=== PATIENT | male | born 1930 | race Caucasian/White ===

== ENCOUNTER → 2016-08-15 | Outpatient (CLI) | payer MEDICARE, BC ==
--- NOTE | 2016-08-15 13:51 | CT ---
EXAMINATION TYPE: CT chest wo con DATE OF EXAM: 08/15/2016 COMPARISON: Right-sided pulmonary nodules. HISTORY: Patient poor historian. Patient offers no chest complaints at time of study. Follow up adia dy to prior CT. CT DLP: 670 mGycm Automated exposure control for dose reduction was used. FINDINGS: There is a stable 7.1 mm noncalcified lymph node in the lateral basal segment of the right lower lobe, best seen on image 36. There is calcified granuloma in the posterior basal segment on mignon t same image. Lesion noted previously in the right lower lobe is less clearly demonstrated on this ex amination. No other definite pulmonary nodules are seen. There is some shotty mediastinal adenopathy. No pathologically enlarged lymph nodes are seen. There is no pleural or pericardial fluid. The heart is not enlarged. There is coronary artery calcifi cation as well as other vascular calcifications. The proximal arch is also aneurysmal measuring 3.3 c m. The proximal descending thoracic aorta remains aneurysmal measuring 3.1 cm. At the level of the ao rtic hiatus the aorta is normal in caliber. There is a 1.5 cm gallstone within the gallbladder. Visualized portions of the upper abdomen are othe rwise normal. There is hypertrophic spondylosis within the spine. IMPRESSION: 1. STABLE, 7.1 MM NODULE IN THE LATERAL BASAL SEGMENT OF THE RIGHT LOWER LOBE. 2. EVIDENCE OF GRANULOMATOUS DISEASE. 3. ASCENDING THORACIC AORTIC ANEURYSM. 4. CHOLELITHIASIS. 5. DEGENERATIVE CHANGES WITHIN THE SPINE.
== END | disposition home or self-care (01) ==
LOC: RADCTMAIN 13:18
PROVIDERS: ATTEND Internal Medicine Critical Care Medicine
DX: R91.1 Solitary pulmonary nodule (principal); I71.2 Thoracic aortic aneurysm, without rupture; D71 Functional disorders of polymorphonuclear neutrophils
CPT/HCPCS: 71250

== ENCOUNTER 2016-11-21 05:46 | Inpatient (IN) | payer MEDICARE, BC ==
--- NOTE | 2016-11-21 06:01 | ED ---
General Adult HPI - General Chief complaint: Shortness of Breath Stated complaint: HARLEY Time Seen by Provider: 11/21/16 05:53 Source: patient, family, RN notes reviewed Mode of arrival: ambulatory Limitations: no limitations - History of Present Illness Initial comments: Patient is a pleasant 86-year-old male presenting to the emergency department with difficulty in breathing. Patient has had some mild symptoms for a week however worse last night. Patient has occasional minimal cough. No chest pain. Patient does have mild leg swelling however this is somewhat chronic. No calf pain. No fever. Patient checked his oxygen at home and it was low. Patient denies any history of previous lung problems or COPD or CHF. - Related Data Home Medications Medication Instructions Recorded Confirmed Aspirin 325 mg PO DAILY 11/21/16 11/21/16 Atenolol [Tenormin] 12.5 mg PO DAILY 11/21/16 11/21/16 Furosemide [Lasix] 40 mg PO BID 11/21/16 11/21/16 Glimepiride [Amaryl] 2 mg PO AC-BRKFST 11/21/16 11/21/16 Isosorbide Mononitrate [Isosorbide 30 mg PO DAILY 11/21/16 11/21/16 Mononitrate ER] Nitroglycerin Sl Tabs [Nitrostat] 0.4 mg SUBLINGUAL Q5M PRN 11/21/16 11/21/16 Simvastatin [Zocor] 40 mg PO HS 11/21/16 11/21/16 amLODIPine [Norvasc] 10 mg PO DAILY 11/21/16 11/21/16 Allergies Allergy/AdvReac Type Severity Reaction Status Date / Time No Known Allergies Allergy Verified 11/21/16 05:59 Review of Systems ROS Statement: Those systems with pertinent positive or pertinent negative responses have been documented in the HPI. ROS Other: All systems not noted in ROS Statement are negative. Constitutional: Denies: fever, chills Eyes: Denies: eye pain ENT: Denies: ear pain Respiratory: Reports: cough, dyspnea Cardiovascular: Denies: chest pain Endocrine: Denies: fatigue Gastrointestinal: Denies: abdominal pain Genitourinary: Denies: dysuria Musculoskeletal: Denies: back pain Skin: Denies: rash Neurological: Denies: weakness Past Medical History Past Medical History: Diabetes Mellitus, Hyperlipidemia, Hypertension History of Any Multi-Drug Resistant Organisms: None Reported Past Surgical History: Coronary Bypass/CABG Past Psychological History: No Psychological Hx Reported Smoking Status: Never smoker Past Alcohol Use History: None Reported Past Drug Use History: None Reported General Exam Limitations: no limitations General appearance: alert, in no apparent distress Head exam: Present: atraumatic Eye exam: Present: normal appearance, PERRL ENT exam: Present: normal oropharynx Neck exam: Present: normal inspection Respiratory exam: Present: rales (Left base greater than right base) Cardiovascular Exam: Present: regular rate, normal rhythm GI/Abdominal exam: Present: soft. Absent: tenderness Extremities exam: Present: pedal edema (+1 bilateral). Absent: calf tenderness Back exam: Present: normal inspection Neurological exam: Present: alert Psychiatric exam: Present: normal affect, normal mood Skin exam: Present: normal color Course Vital Signs 11/21/16 11/21/16 05:51 06:29 Temperature 98.4 F Pulse Rate 59 L 59 L Respiratory 24 20 Rate Blood Pressure 182/76 169/74 O2 Sat by Pulse 79 L Oximetry EKG Findings - EKG Comments: EKG Findings:: Sinus bradycardia 59. First-degree AV block with TN of 3:30. QRS 102. QT 422. QTC 417. Normal axis. Q wave in lead III. No acute ST change. Medical Decision Making - Medical Decision Making Patient reevaluated and resting comfortably in bed. Patient and family were updated on results and plan. Case discussed with Dr. Shepherd, covering for Dr. Randolph who does recommend admission to Dr. sousa. Case was discussed with Dr. sousa, who will admit. Cardiology has been paged. - Lab Data Result diagrams: 11/21/16 05:57 11/21/16 05:57 Lab Results 11/21/16 11/21/16 11/21/16 Range/Units 05:57 05:57 05:57 WBC 10.7 H (3.8-10.6) k/uL RBC 4.86 (4.30-5.90) m/uL Hgb 14.5 (13.0-17.5) gm/dL Hct 43.1 (39.0-53.0) % MCV 88.6 (80.0-100.0) fL MCH 29.8 (25.0-35.0) pg MCHC 33.6 (31.0-37.0) g/dL RDW 14.1 (11.5-15.5) % Plt Count 201 (150-450) k/uL Neutrophils % 76 % Lymphocytes % 13 % Monocytes % 8 % Eosinophils % 2 % Basophils % 0 % Neutrophils # 8.1 H (1.3-7.7) k/uL Lymphocytes # 1.4 (1.0-4.8) k/uL Monocytes # 0.8 (0-1.0) k/uL Eosinophils # 0.2 (0-0.7) k/uL Basophils # 0.0 (0-0.2) k/uL PT (9.0-12.0) sec INR (<1.2) APTT (22.0-30.0) sec Sodium 141 (137-145) mmol/L Potassium 4.6 (3.5-5.1) mmol/L Chloride 102 (98-107) mmol/L Carbon Dioxide 28 (22-30) mmol/L Anion Gap 11 mmol/L BUN 40 H (9-20) mg/dL Creatinine 1.65 H (0.66-1.25) mg/dL Est GFR (MDRD) Af Amer 48 (>60 ml/min/1.73 sqM) Est GFR (MDRD) Non-Af 40 (>60 ml/min/1.73 sqM) Glucose 289 H (74-99) mg/dL Calcium 9.1 (8.4-10.2) mg/dL Total Bilirubin 1.0 (0.2-1.3) mg/dL AST 25 (17-59) U/L ALT 37 (21-72) U/L Alkaline Phosphatase 79 (38-126) U/L Total Creatine Kinase 49 L (55-170) U/L CK-MB (CK-2) 1.4 (0.0-2.4) ng/mL CK-MB (CK-2) Rel Index 2.9 Troponin I 0.178 H* (0.000-0.034) ng/mL NT-Pro-B Natriuret Pep pg/mL Total Protein 6.9 (6.3-8.2) g/dL Albumin 4.2 (3.5-5.0) g/dL 11/21/16 11/21/16 Range/Units 05:57 05:57 WBC (3.8-10.6) k/uL RBC (4.30-5.90) m/uL Hgb (13.0-17.5) gm/dL Hct (39.0-53.0) % MCV (80.0-100.0) fL MCH (25.0-35.0) pg MCHC (31.0-37.0) g/dL RDW (11.5-15.5) % Plt Count (150-450) k/uL Neutrophils % % Lymphocytes % % Monocytes % % Eosinophils % % Basophils % % Neutrophils # (1.3-7.7) k/uL Lymphocytes # (1.0-4.8) k/uL Monocytes # (0-1.0) k/uL Eosinophils # (0-0.7) k/uL Basophils # (0-0.2) k/uL PT 10.8 (9.0-12.0) sec INR 1.1 (<1.2) APTT 25.4 (22.0-30.0) sec Sodium (137-145) mmol/L Potassium (3.5-5.1) mmol/L Chloride (98-107) mmol/L Carbon Dioxide (22-30) mmol/L Anion Gap mmol/L BUN (9-20) mg/dL Creatinine (0.66-1.25) mg/dL Est GFR (MDRD) Af Amer (>60 ml/min/1.73 sqM) Est GFR (MDRD) Non-Af (>60 ml/min/1.73 sqM) Glucose (74-99) mg/dL Calcium (8.4-10.2) mg/dL Total Bilirubin (0.2-1.3) mg/dL AST (17-59) U/L ALT (21-72) U/L Alkaline Phosphatase (38-126) U/L Total Creatine Kinase (55-170) U/L CK-MB (CK-2) (0.0-2.4) ng/mL CK-MB (CK-2) Rel Index Troponin I (0.000-0.034) ng/mL NT-Pro-B Natriuret Pep 6270 pg/mL Total Protein (6.3-8.2) g/dL Albumin (3.5-5.0) g/dL - Radiology Data Radiology results: image reviewed (X-ray shows mild pulmonary edema.) Critical Care Time Critical Care Time: Yes Total Critical Care Time: 34 Disposition Clinical Impression: Congestive heart failure, NSTEMI (non-ST elevated myocardial infarction) Disposition: ADMITTED IP TO THIS [facility] Condition: Serious Referrals: Mark Randolph DO [Primary Care Provider] - 1-2 days Decision Time: 07:09
[2016-11-21 06:18] LABS: Basophils % (A) 0 %; CH 29.1; Eosinophils # (A) 0.2 k/uL (0-0.7); Eosinophils % (A) 2 %; HCT 43.1 % (39.0-53.0); HDW 2.57; HGB 14.5 gm/dL (13.0-17.5); Luc # (Auto) 0.18; Luc % (Auto) 2; Lymphocytes # (A) 1.4 k/uL (1.0-4.8); Lymphocytes % (A) 13 %; MCH 29.8 pg (25.0-35.0); MCHC 33.6 g/dL (31.0-37.0); MCV 88.6 fL (80.0-100.0); Mean Platelet Volume 7.4; Monocytes # (A) 0.8 k/uL (0-1.0); Monocytes % (A) 8 %; Neutrophils # (A) 8.1 k/uL (1.3-7.7); Neutrophils % (A) 76 %; RBC 4.86 m/uL (4.30-5.90); RDW 14.1 % (11.5-15.5); WBC 10.7 k/uL (3.8-10.6); WBC (Perox) 10.24
[2016-11-21 06:28] LABS: Calcium 9.1 mg/dL (8.4-10.2); INR 1.1 (<1.2); Partial Thromboplastin Time 25.4 sec (22.0-30.0); Potassium 4.6 mmol/L (3.5-5.1); Prothrombin Time 10.8 sec (9.0-12.0); Total Protein 6.9 g/dL (6.3-8.2)
--- NOTE | 2016-11-21 06:46 | XR ---
EXAM: XR Chest, 2 Views CLINICAL HISTORY: Reason: difficulty breathing TECHNIQUE: Frontal and lateral views of the chest. COMPARISON: Chest CT from 08/15/16 FINDINGS: Lungs: Small amount of diffuse interstitial opacities throughout both lungs. Pleural space: Small bilateral pleural effusions. No pneumothorax. Heart: Unremarkable. No cardiomegaly. Mediastinum: Unremarkable. Bones/joints: Sternal wires are again noted. Osteopenia. Moderate degenerative changes. Vasculature: Aorta is calcified. IMPRESSION: Mild pulmonary edema.
[2016-11-21 06:55] LABS: Creatine Kinase MB 1.4 ng/mL (0.0-2.4)
[2016-11-21 06:57] LABS: Troponin I 0.178 ng/mL (0.000-0.034)
[2016-11-21] MEDS ORDERED: HEPARIN SODIUM,PORCINE 5,000 UNIT/ML 1 ML VIAL IV PRN (07:10)
[2016-11-21] MEDS ORDERED: NITROGLYCERIN SL TABS 0.4 MG TAB SUBLINGUAL PRN (07:10)
[2016-11-21] MEDS ORDERED: HEPARIN SODIUM,PORCINE 5,000 UNIT/ML 1 ML VIAL IV ONE (07:10)
[2016-11-21] MEDS: ASPIRIN 81 MG CHEW PO STA ×2 (07:31→07:37)
[2016-11-21] MEDS: HEPARIN SODIUM,PORCINE/D5W PMX 25,000 UNIT in DEXTROSE/WATER 1 500ML.BAG IV SCH (07:38)
--- NOTE | 2016-11-21 10:32 | CONS ---
CONSULTATION CHIEF COMPLAINT: Shortness of breath. This is an 86-year-old gentleman with history of coronary artery disease, status post CABG, hypertension, dyslipidemia, [id number] diabetes who presented to hospital complaining of shortness of breath that has been going on for the last one week. It was particularly worse last night. It is mild to moderate intensity, came on at rest. Became worse with activity. It is associated with some leg swelling. At the time of my evaluation this morning, he appears comfortable at rest and is not in distress. PAST MEDICAL HISTORY: Significant for coronary artery disease,status post CABG, hypertension, dyslipidemia, [id number] diabetes. CURRENT MEDICATIONS: Current medications include aspirin, atenolol 12.5 mg daily, Lasix 40 b.i.d., Amaryl, Imdur 30 q. daily, simvastatin 40 q. daily, amlodipine 10 q. daily. ALLERGIES: There are no known drug allergies. FAMILY HISTORY: Negative for premature coronary artery disease. SOCIAL HISTORY: Negative for current smoking, EtOH abuse or drug abuse. REVIEW OF SYSTEMS: HEENT is unremarkable. CARDIAC: As described above. RESPIRATORY: As described above. GI: Negative. GENITOURINARY: Negative. MUSCULOSKELETAL: Significant for joint pain. PSYCHOSOCIAL: Negative. ENDOCRINE: Negative. HEMATOLOGICAL: Negative. DERM: Negative. CONSTITUTIONAL: Negative. ONCOLOGICAL: Negative. Rest of the systems review is not relevant. PHYSICAL EXAMINATION: On exam, comfortable at rest. Heart rate is 54 beats per minute. Blood pressure is 170/72, respiratory rate 18. Chest exam reveals diminished air entry at the bases. Heart exam reveals first and second heart sounds and a systolic murmur at the apex. ABDOMEN: Soft. Examination of the extremities reveals bilateral 1+ pitting edema. LABS: Labs show that the potassium is 4.6, BUN is 40, creatinine is 1.6. AST and ALT are normal. Troponin is elevated. BNP is elevated at 6270. EKG shows sinus bradycardia with nonspecific ST-T wave changes. ASSESSMENT: 1. Acute exacerbation of chronic congestive heart failure. 2. Coronary artery disease, status post CABG. 3. Mild non ST-segment elevation myocardial infarction. 4. History of hypertension. 5. History of diabetes. PLAN: I am going to obtain a 2-D echo to assess LV function. Continue the IV heparin at this time. Continue the nitrates, aspirin, beta blockers and statins. Add hydralazine 50 q.8 hours for optimal blood pressure control. MMODL / IJN: [id number] /
[2016-11-21] MEDS: ATENOLOL 12.5 MG TAB PO SCH (10:59)
[2016-11-21] MEDS: FUROSEMIDE 10 MG/ML 4 ML VIAL IV SCH ×3 (10:59→22:56)
[2016-11-21] MEDS: amLODIPine 10 MG TAB PO SCH (10:59)
--- NOTE | 2016-11-21 11:23 | ECHOF ---
Referral Reason:nstemi MEASUREMENTS -------- HEIGHT: 177.8 cm WEIGHT: 88.5 kg BP: 172/74 RVIDd: 3.8 cm (< 3.3) IVSd: 1.4 cm (0.6 - 1.1) LVIDd: 4.7 cm (3.9 - 5.3) LVPWd: 1.4 cm (0.6 - 1.1) IVSs: 1.8 cm LVIDs: 3.8 cm LVPWs: 1.7 cm LA Diam: 4.7 cm (2.7 - 3.8) LAESV Index (A-L): 38.93 ml/m Ao Diam: 3.4 cm (2.0 - 3.7) AV Cusp: 1.7 cm (1.5 - 2.6) MV EXCURSION: 17.332 mm (> 18.000) MV EF SLOPE: 78 mm/s (70 - 150) EPSS: 0.8 cm MV E Kirill: 1.29 m/s MV DecT: 151 ms MV A Kirill: 1.13 m/s MV E/A Ratio: 1.14 RAP: 5.00 mmHg RVSP: 48.60 mmHg FINDINGS -------- This was a technically good study. The left ventricular size is normal. There is moderate concentric left ventricular hypertrophy. Overall left ventricular systolic function is mild-moderately impaired with, an EF between 40 - 45 %. The right ventricle is mild to moderately enlarged. LA is moderately dilated 34-39 ml/m2 The right atrium is normal in size. There is mild aortic valve sclerosis. Mild mitral annular calcification present. Mild mitral regurgitation is present. Mild tricuspid regurgitation present. There is moderate pulmonary hypertension. The right ventricular systolic pressure, as measured by Doppler, is 48.60mmHg. The pulmonic valve was not well visualized. The aortic root size is normal. Normal inferior vena cava with normal inspiratory collapse consistent with estimated right atrial pressure of 5 mmHg. There is no pericardial effusion. CONCLUSIONS -------- 1. This was a technically good study. 2. Mild mitral regurgitation is present. 3. Mild tricuspid regurgitation present. 4. There is moderate pulmonary hypertension. 5. The right ventricular systolic pressure, as measured by Doppler, is 48.60mmHg. 6. The pulmonic valve was not well visualized. 7. The aortic root size is normal. 8. Normal inferior vena cava with normal inspiratory collapse consistent with estimated right atrial pressure of 5 mmHg. 9. There is no pericardial effusion. 10. The left ventricular size is normal. 11. There is moderate concentric left ventricular hypertrophy. 12. Overall left ventricular systolic function is mild-moderately impaired with, an EF between 40 - 45 %. 13. The right ventricle is mild to moderately enlarged. 14. LA is moderately dilated 34-39 ml/m2 15. The right atrium is normal in size. 16. There is mild aortic valve sclerosis. 17. Mild mitral annular calcification present. SERVICE PROVIDER: Liseth Modi RDCS
[2016-11-21 12:01] LABS: Glucose,Whole Blood 81 mg/dL (75-99)
[2016-11-21 12:49] LABS: Creatine Kinase MB 1.3 ng/mL (0.0-2.4)
[2016-11-21 12:59] LABS: Troponin I 0.267 ng/mL (0.000-0.034)
[2016-11-21] MEDS: hydrALAZINE HCL 50 MG TAB PO SCH ×3 (13:16→22:56)
[2016-11-21] MEDS: NITROGLYCERIN OINT 1 INCH/GM PACKET TOPICAL SCH ×3 (13:22→22:56)
--- NOTE | 2016-11-21 13:27 | P.CNPUL ---
History of Present Illness Consult date: 11/21/16 Reason for consult: dyspnea, cough, chest pain, hypoxemia, abnormal CXR/CT Chief complaint: Shortness of breath and cough History of present illness: Consult dated 11/21/2016 This is an 86-year-old male with a history of diabetes hyperlipidemia hypertension previous bypass surgery who presents to the emergency department complaining of difficulty in breathing. The symptoms have been present for about a week or so getting worse. A particularly got worse about 24 hours prior to admission. No chest pain or chest pressure. The patient did have minimal cough. The patient does have some mild leg swelling. pain no fever. No chills. No nausea vomiting or diarrhea. He apparently has a pulse oximeter at home and his saturations are low. He was admitted to the hospital for a diagnosis of possible CHF but non-ST segment elevation myocardial infarction. Review of Systems A 12 point review of system is positive for shortness of breath cough and leg swelling. The rest of the 12 point review of system is unremarkable. He really denies any chest pain or pressure no phlegm production. No fever no chills. No nausea vomiting or diarrhea. 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 Last Myocardial Infarction Date:: 2006 History of Any Multi-Drug Resistant Organisms: None Reported Past Surgical History: Coronary Bypass/CABG, Heart Catheterization With Stent, Tonsillectomy Additional Past Surgical History / Comment(s): 2006 PCI with stent to RCA, 2006 3 vessel CABG, L caratid endartectomy, R knee arthroscopy, bilateral cataract removal with lens Past Anesthesia/Blood Transfusion Reactions: No Reported Reaction Date of Last Stent Placement:: 2006 Smoking Status: Never smoker - Past Family History Father Family Medical History: CVA/TIA, Diabetes Mellitus Additional Family Medical History / Comment(s): Father at the age of 76yrs. He had problems with his diabetes and had double amputation of legs due to this. Mother Family Medical History: No Reported History Additional Family Medical History / Comment(s): Mother was healthy and lived to be 91 yrs old. Medications and Allergies Home Medications Medication Instructions Recorded Confirmed Type Aspirin 325 mg PO DAILY 11/21/16 11/21/16 History Atenolol [Tenormin] 12.5 mg PO DAILY 11/21/16 11/21/16 History Furosemide [Lasix] 40 mg PO BID 11/21/16 11/21/16 History Glimepiride [Amaryl] 2 mg PO AC-BRKFST 11/21/16 11/21/16 History Isosorbide Mononitrate [Isosorbide 30 mg PO DAILY 11/21/16 11/21/16 History Mononitrate ER] Nitroglycerin Sl Tabs [Nitrostat] 0.4 mg SUBLINGUAL Q5M PRN 11/21/16 11/21/16 History Simvastatin [Zocor] 40 mg PO HS 11/21/16 11/21/16 History amLODIPine [Norvasc] 10 mg PO HS 11/21/16 11/21/16 History Allergies Allergy/AdvReac Type Severity Reaction Status Date / Time No Known Allergies Allergy Verified 11/21/16 07:23 Physical Exam Osteopathic Statement: *. No significant issues noted on an osteopathic structural exam other than those noted in the History and Physical/Consult. Vitals: Vital Signs Temp Pulse Pulse Resp BP BP Pulse Ox 11/21/16 12:00 97.1 F L 56 L 20 144/76 11/21/16 07:51 98.5 F 54 L 22 172/74 92 L 11/21/16 07:21 98.6 F 56 L 22 166/71 93 L 11/21/16 06:29 59 L 20 169/74 11/21/16 05:51 98.4 F 59 L 24 182/76 79 L Intake and Output 11/20/16 11/21/16 11/21/16 22:59 06:59 14:59 Intake Total 240 Balance 240 Intake: Oral 240 Other: # Voids 1 Weight 88.6 kg No acute distress, oriented 3. HEENT examination is grossly unremarkable. Mucous membranes are moist. No oral lesions. Neck supple. Full range of motion. No adenopathy or thyromegaly. Cardiovascular examination reveals regular rhythm rate. S1-S2 normal. There is no S3-S4 or murmur. Lungs reveal mostly clear breath sounds. Maybe a few scattered mild crackles. No wheezes. No rhonchi. Breath sounds are equal. Abdomen soft bowel sounds are heard. No masses or tenderness. Extremities are intact. Minimal edema. Rash is not noted on the skin. Neurologic examination is nonfocal. Results - Laboratory Findings CBC and BMP: 11/21/16 05:57 11/21/16 05:57 PT/INR, D-dimer PT 10.8 sec (9.0-12.0) 11/21/16 05:57 INR 1.1 (<1.2) 11/21/16 05:57 Abnormal lab findings: Abnormal Labs 11/21/16 11/21/16 11/21/16 05:57 05:57 05:57 WBC 10.7 H Neutrophils # 8.1 H APTT BUN 40 H Creatinine 1.65 H Glucose 289 H Total Creatine Kinase 49 L Troponin I 0.178 H* 11/21/16 11/21/16 11:53 11:53 WBC Neutrophils # APTT 32.1 H BUN Creatinine Glucose Total Creatine Kinase 42 L Troponin I 0.267 H* - Diagnostic Findings Chest x-ray: image reviewed (Labs x-rays a medications are all reviewed.) Assessment and Plan (1) Diabetes Status: Acute (2) Hypertension Status: Acute (3) Hyperlipidemia Status: Acute (4) Status post vascular bypass Status: Acute (5) Congestive heart failure Status: Acute (6) NSTEMI (non-ST elevated myocardial infarction) Status: Acute Plan: Plan dated 11/21/2016 The patient seemed be doing relatively well. Apparently the case was discussed with my partner in the ER doctor last night. The patient has yet to see cardiology but will see them soon. Labs x-rays a medications are reviewed. We' ll continue to follow. Prognosis is guarded. Time with Patient: Greater than 30
[2016-11-21 13:36] VITALS: BMI 28.0
[2016-11-21 16:51] LABS: Glucose,Whole Blood 199 mg/dL (75-99)
[2016-11-21 19:37] LABS: Troponin I 0.302 ng/mL (0.000-0.034)
[2016-11-21] MEDS: ATORVASTATIN 20 MG TAB PO SCH (20:30)
[2016-11-21 21:06] LABS: Glucose,Whole Blood 136 mg/dL (75-99)
--- NOTE | 2016-11-21 21:44 | HP ---
HISTORY AND PHYSICAL DATE OF ADMISSION: November 21, 2016. PRESENTING COMPLAINT: Short of breath. HISTORY OF PRESENT COMPLAINT: This is an 86-year-old patient of Dr. Randolph whose chronic stable medical conditions include coronary artery disease, diabetes, GERD, hyperlipidemia, hypertension. Uses a walker to get about. Patient presented with increasing short of breath for about 2 weeks ago. Has got a slight cough, minimum sputum production. Appetite is good. Denies any obvious fevers. Some wheezing is present and presented to the ER and admitted for the same there. The patient has mild edema. REVIEW OF SYSTEMS: Constitutional: Tired. HEENT decreased hearing. Respiratory as above. Cardiovascular as above. Gastrointestinal none. Genitourinary: None. Musculoskeletal: Some pain in joints. DERMATOLOGICAL: None. Hematological: None. Lymphatics: None. Neurological uses a walker. PAST MEDICAL HISTORY: Coronary artery disease, stroke, diabetes, GERD, hyperlipidemia and hypertension, gait dysfunction. PAST SURGICAL HISTORY: Coronary artery bypass, cardiac cath with stent, tonsillectomy, stent to the RCA in 2006, left carotid endarterectomy, right knee arthroscopy and bilateral cataract removal. SOCIAL HISTORY: The patient lives alone. No smoking. Patient used to drink a case of beer a day but quit about 20 years ago. Now drinks very rarely. FAMILY HISTORY: Stroke and diabetes. HOME MEDICATIONS: 1. Norvasc 10 mg q.h.s. 2. Zocor 40 mg q.h.s. 3. Nitrostat 0.4 sublingual q.5 p.r.n. 4. Imdur 30 mg a day. 5. Amaryl 2 mg p.o. with breakfast. 6. Lasix 40 mg p.o. b.i.d. 7. Tenormin 12.5 p.o. daily. 8. Aspirin 325 p.o. daily. ALLERGIES: None. EXAMINATION: Vital signs on presentation: Temperature 98.4, pulse 59, respiratory 24, blood pressure 182/76, pulse ox 99% on room air. GENERAL APPEARANCE: Average built, lying in bed, tired appearing. HEENT normal HEENT oral cavity normal. NECK: JVD unable to assess. Mass not palpable. Respiratory effort increased. Lungs decreased breath sounds. Some mild basilar crackles. Cardiovascular first and second sounds normal. Mild edema. ABDOMEN: Soft, nontender. Liver and spleen not palpable. Lymphatics: No lymph nodes palpable in the neck and axilla. PSYCHIATRY: Alert and oriented x3. Mood and affect slightly anxious-appearing. Neurological pupils equal . Cranial nerves grossly intact. Power and sensation grossly intact. INVESTIGATIONS: White count 10.7, hemoglobin 14.5, potassium 4.6, BUN 14, creatinine 1.65, glucose 29, troponin 0.178, 0.267. Chest x-ray reporting mild venous prominence. EKG showing sinus rhythm. 2D echo showing moderate pulmonary hypertension. Moderate concentric left ventricular hypertrophy. EF of 40-45%. ASSESSMENT: 1. Acute on chronic congestive heart failure exacerbation from systolic and diastolic dysfunction. Ejection fraction 45-50%. 2. Hypertensive heart disease. 3. 4. Coronary artery disease. Previous bypass. 5. Diabetes mellitus type 2 on oral hypoglycemic. 6. Gastroesophageal reflux disease. 7. Hyperlipidemia. 8. Essential hypertension uncontrolled on presentation. 9. 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 PLAN: The patient is started on IV Lasix. Home medications were resumed. Accu-Cheks will be followed. Care was discussed with the patient. Consultation to Pulmonary and cardiology was done. I saw this patient earlier today. The patient is very keen to go home. We will see how he does in the next [address] Randolph. JAGDISH / TAMMI: [id number] /
[2016-11-22] MEDS: HEPARIN SODIUM,PORCINE/D5W PMX 25,000 UNIT in DEXTROSE/WATER 1 500ML.BAG IV SCH ×2 (03:25→21:23)
[2016-11-22 06:17] LABS: Calcium 8.4 mg/dL (8.4-10.2); Potassium 4.3 mmol/L (3.5-5.1)
[2016-11-22] MEDS: NITROGLYCERIN OINT 1 INCH/GM PACKET TOPICAL SCH ×4 (06:19→23:30)
[2016-11-22 06:33] LABS: Glucose,Whole Blood 136 mg/dL (75-99)
[2016-11-22] MEDS ORDERED: ASPIRIN 325 MG TAB PO SCH (09:00)
[2016-11-22] MEDS: FUROSEMIDE 10 MG/ML 4 ML VIAL IV SCH ×3 (10:25→23:30)
[2016-11-22] MEDS: amLODIPine 10 MG TAB PO SCH (10:26)
[2016-11-22] MEDS: ISOSORBIDE MONONITRATE ER 30 MG TAB.ER.24H PO SCH (10:26)
[2016-11-22] MEDS: ATENOLOL 12.5 MG TAB PO SCH (10:26)
[2016-11-22] MEDS: ASPIRIN 81 MG CHEW PO SCH (10:26)
[2016-11-22] MEDS: hydrALAZINE HCL 50 MG TAB PO SCH ×3 (10:27→23:39)
--- NOTE | 2016-11-22 14:50 | P.PN ---
Subjective Principal diagnosis: Shortness of breath This is an 86-year-old gentleman with history of coronary artery disease status post bypass surgery, hypertension, hyperlipidemia, diabetes, who presented to the hospital with symptoms of progressively worsening shortness of breath, patient also ruled in for non-Q-wave myocardial infarction. Echocardiogram with Doppler study was performed which revealed an ejection fraction of 40-45%. Blood pressure 120/50. Creatinine 1.7. Weight down 3 kg today. Patient continues to be on IV Lasix. Feeling better overall. Objective - Vital Signs Vital signs: Vital Signs Temp 98.5 F 11/22/16 08:00 Pulse 63 11/22/16 08:00 Resp 18 11/22/16 08:00 BP 131/62 11/22/16 08:00 Pulse Ox 91 L 11/22/16 08:00 Intake & Output 11/21/16 11/22/16 11/22/16 18:59 06:59 18:59 Intake Total 356 553.908 Balance 356 553.908 Weight 88.6 kg 85.7 kg 85.7 kg Intake: IV 126 Heparin Sodium,Porcine/ 126 D5w Pmx 25,000 unit In Dextrose/Water 1 500ml. bag @ 11.29 UNITS/KG/HR 20 mls/hr IV .Q24H JEANNINE Rx #:[id number] Intake, IV Titration 116 427.908 Amount Heparin Sodium,Porcine/ 116 427.908 D5w Pmx 25,000 unit In Dextrose/Water 1 500ml. bag @ 11.29 UNITS/KG/HR 20 mls/hr IV .Q24H JEANNINE Rx #:[id number] Oral 240 Other: Voiding Method Toilet Toilet # Voids 1 5 - Exam PHYSICAL EXAMINATION: HEENT: Head is atraumatic, normocephalic. Pupils equal, round. Neck is supple. There is no elevated jugular venous pressure. HEART EXAMINATION: S1 and S2 systolic murmur is heard. CHEST EXAMINATION: Lungs are clear with diminished air entry to bilateral bases. ABDOMEN: Soft, nontender. Bowel sounds are heard. No organomegaly noted. EXTREMITIES:[ 2+ peripheral pulses with evidence of peripheral edema NEUROLOGIC patient is awake, alert and oriented -3. . - Labs CBC & Chem 7: 11/22/16 05:37 11/22/16 05:37 Labs: Abnormal Lab Results - Last 24 Hours (Table) 11/21/16 11/21/16 11/21/16 Range/Units 16:28 18:51 18:51 APTT 51.4 H (22.0-30.0) sec Carbon Dioxide (22-30) mmol/L BUN (9-20) mg/dL Creatinine (0.66-1.25) mg/dL Glucose (74-99) mg/dL POC Glucose (mg/dL) 199 H (75-99) mg/dL Total Creatine Kinase 32 L (55-170) U/L Troponin I 0.302 H* (0.000-0.034) ng/mL 11/21/16 11/22/16 11/22/16 Range/Units 21:04 00:29 05:37 APTT 45.6 H (22.0-30.0) sec Carbon Dioxide 31 H (22-30) mmol/L BUN 47 H (9-20) mg/dL Creatinine 1.70 H (0.66-1.25) mg/dL Glucose 142 H (74-99) mg/dL POC Glucose (mg/dL) 136 H (75-99) mg/dL Total Creatine Kinase (55-170) U/L Troponin I (0.000-0.034) ng/mL 11/22/16 11/22/16 Range/Units 05:37 06:31 APTT 44.7 H (22.0-30.0) sec Carbon Dioxide (22-30) mmol/L BUN (9-20) mg/dL Creatinine (0.66-1.25) mg/dL Glucose (74-99) mg/dL POC Glucose (mg/dL) 136 H (75-99) mg/dL Total Creatine Kinase (55-170) U/L Troponin I (0.000-0.034) ng/mL Assessment and Plan (1) Systolic CHF, acute on chronic Status: Acute (2) Diabetes Status: Acute (3) Hyperlipidemia Status: Acute (4) Hypertension Status: Acute (5) NSTEMI (non-ST elevated myocardial infarction) Status: Acute Plan: Cardiology's perspective, we will continue current medications including the IV Lasix. Check lytes BUN and creatinine intake and output and daily weights in the morning. DNP note has been reviewed, I agree with a documented findings and plan of care. Patient was seen and examined.
[2016-11-22] MEDS ORDERED: LACTULOSE 20 GM/30 ML CUP PO ONE (15:17)
--- NOTE | 2016-11-22 15:28 | P.PN ---
Progress Note - Text DATE OF SERVICE: 11/22/2016 PRESENTING COMPLAINT: Short of breath HISTORY OF PRESENT ILLNESS: 86-year-old male presented with increasing shortness of breath for about 2 weeks with cough, minimal sputum production. Afebrile. Mild edema noted. Admitted with an acute exacerbation of CHF. INTERVAL HISTORY: 11/22/2016: Sitting up at the bedside family present. Shortness of breath improved, states he feels better. Patient has received several doses of IV Lasix which improved his overall condition. Tolerating his diet eating about 50-75% of his meals, ambulatory with a walker to and from the bathroom with assistance, last BM prior to admission. REVIEW OF SYSTEMS: Done for constitutional ,cardiovascular, GI, pulmonary with relevant findings as above. CURRENT MEDICATIONS Aspirin, atenolol 12.5 mg by mouth daily, Lipitor 20 mg by mouth at at bedtime. Lasix 40 mg IV every 8 hours, Imdur 30 mg by mouth daily, MiraLAX 17 g Monday, lactulose 30 g 1 dose PHYSICAL EXAM VITAL SIGNS: Temperature 98.5, pulse 63, respiratory rate 18, blood pressure 131/62, oxygen saturation 91% on 3 L. GENERAL APPEARANCE: Sitting up on the bed, not in distress. EYES: Pupils equal. Conjunctiva normal. NECK: JVD unable to assess. Mass not palpable. RESPIRATORY: Respiratory effort increased. Lungs diminished with some mild basilar crackles to auscultation. CARDIOVASCULAR: First and second sounds normal. Mild edema. ABDOMEN: Soft. Liver and spleen not palpable. No tenderness. No mass palpable. PSYCHIATRY: Alert and oriented x3. Mood and affect normal. INVESTIGATIONS: Carbon dioxide 31, BUN 47, creatinine 1.70, Accu-Cheks noted. ASSESSMENT: -Possible acute non Q wave myocardial infarction, present on admission. -Acute on chronic congestive heart failure from systolic and diastolic dysfunction. Ejection fraction 45-50%from underlying coronary artery disease. -Hypertensive heart disease. -Coronary artery disease. Previous bypass. -Diabetes mellitus type 2 on oral hypoglycemics. -Gastroesophageal reflux disease. -Hyperlipidemia. -Essential hypertension uncontrolled on presentation. -Chronic kidney disease stage III from hypertensive nephrosclerosis. PLAN: Continue IV Lasix, continue to follow labs, I&O and daily weights. May switch his IV Lasix back tomorrow to oral. Very anxious to go home, discharge planning for the next 24-48 hours, based on patient condition. Plan of care discussed with the patient and family at the bedside and they are in Agreement. We will follow closely. RESIZER OPERATOR statement: Patient was seen and examined by nurse practitioner Bailee Delgado and all elements of the case discussed with attending Dr. Bunch
[2016-11-22 15:54] LABS: Glucose,Whole Blood 178 mg/dL (75-99)
[2016-11-22 16:45] LABS: Glucose,Whole Blood 164 mg/dL (75-99)
--- NOTE | 2016-11-22 19:33 | PN ---
PROGRESS NOTE An 86-year-old male admitted with a diagnosis of congestive heart failure. He has a history of diabetes, hyperlipidemia, hypertension, previous bypass surgery. He presented to the emergency department with complaint of difficulty in breathing. He had been getting sick for about a week or so prior to admission. No fever, no chills. No nausea, vomiting or diarrhea. He was admitted with a diagnosis of CHF, but also non ST-segment elevation myocardial infarction. Currently, his vital signs include a temperature which is 98.5, heart rate 63, respiratory rate 18, blood pressure 131/62, mean 85 and a 3L saturation of 93%. Appears in no acute distress. HEENT: Grossly unremarkable. Mucous membranes are moist. No oral lesions. NECK: Supple. Full range of motion. No adenopathy. Cardiovascular reveals regular rhythm rate. S1, S2 normal. No S3, S4 or murmur. Lungs reveal a few scattered crackles. Breath sounds are diminished. ABDOMEN: Soft. Bowel sounds heard. Extremities are intact. No cyanosis, clubbing or edema. Labs are reviewed. PTT is 44.7, platelet count 176,000. Sodium, potassium, chloride normal. CO2 31. BUN and creatinine were 47 and 1.70. The initial N terminal proBNP was elevated at 6270. No new x-rays to report. ASSESSMENT: 1. Congestive heart failure. 2. Hypertension. 3. Diabetes. 4. Hyperlipidemia. 5. Status post bypass grafting. 6. Non ST-segment elevation myocardial infarction. PLAN: Will continue to follow. No additional recommendations are made. His breathing is already improved. Cardiology on the case. Will continue to follow. Prognosis is guarded. MMODL / IJN: [id number] /
[2016-11-22] MEDS: ATORVASTATIN 20 MG TAB PO SCH (20:39)
[2016-11-22 20:45] LABS: Glucose,Whole Blood 190 mg/dL (75-99)
--- NOTE | 2016-11-23 00:36 | PN ---
PROGRESS NOTE DATE OF SERVICE: November 22, 2016. ATTENDING NOTE: This patient seen and examined by me. I discussed with my SAP BASIS CONSULTANT Pietro Nicholebandar. The patient admitted with CHF exacerbation. Breathing is getting better. Two daughters and son at the bedside. PHYSICAL EXAMINATION: On examination, temperature 98.5, pulse 53, blood pressure 113/72. Lungs improved air entry. CARDIOVASCULAR: First and second sounds normal. Mild wheezing is present. Edema is present. INVESTIGATIONS: Troponin's are noted. ASSESSMENT: 1. Possible acute non-Q-wave myocardial infarction. Present on admission. 2. Acute on chronic congestive heart failure from systolic and diastolic dysfunction, ejection fraction 45-50% from underlying coronary artery disease. PLAN: Continue with IV Lasix. Care was discussed with family members at bedside. Overall getting better. Will follow. JAGDISH / ADDIEN: [id number] /
[2016-11-23 04:35] VITALS: RESP 18
[2016-11-23 06:19] LABS: Mean Platelet Volume 8.5
[2016-11-23] MEDS: NITROGLYCERIN OINT 1 INCH/GM PACKET TOPICAL SCH (06:34)
[2016-11-23 07:07] LABS: Calcium 8.6 mg/dL (8.4-10.2); Potassium 4.2 mmol/L (3.5-5.1)
[2016-11-23] MEDS: amLODIPine 10 MG TAB PO SCH (08:51)
[2016-11-23] MEDS: ISOSORBIDE MONONITRATE ER 30 MG TAB.ER.24H PO SCH (08:51)
[2016-11-23] MEDS: ASPIRIN 81 MG CHEW PO SCH (08:51)
[2016-11-23] MEDS: ATENOLOL 12.5 MG TAB PO SCH (08:51)
[2016-11-23] MEDS ORDERED: POLYETHYLENE GLYCOL 3350 17 GM POWD.PACK PO SCH (09:00)
[2016-11-23] MEDS: FUROSEMIDE 10 MG/ML 4 ML VIAL IV SCH (09:06)
[2016-11-23 09:27] VITALS: PULSE 68; TEMP 98.7
[2016-11-23] MEDS: hydrALAZINE HCL 25 MG TAB PO SCH ×2 (09:39→16:47)
[2016-11-23] MEDS: FUROSEMIDE 40 MG TAB PO SCH ×2 (09:40→16:47)
--- NOTE | 2016-11-23 10:22 | P.PN ---
Subjective Principal diagnosis: Shortness of breath This is an 86-year-old gentleman with history of coronary artery disease status post bypass surgery, hypertension, hyperlipidemia, diabetes, who presented to the hospital with symptoms of progressively worsening shortness of breath, patient also ruled in for non-Q-wave myocardial infarction. Echocardiogram with Doppler study was performed which revealed an ejection fraction of 40-45%. Blood pressure 120/50. Creatinine 1.7. Weight down 3 kg today. Patient continues to be on IV Lasix. Feeling better overall. 11/23/2016 Patient seen and examined this morning, feeling much better overall. Weight is down 1 kg today. Creatinine 1.7. We will change him over to oral diuretics. He already has a follow-up appointment with Dr. Sharp in January which she has been encouraged to keep. Objective - Vital Signs Vital signs: Vital Signs Temp 98.7 F 11/23/16 08:00 Pulse 68 11/23/16 08:00 Resp 18 11/23/16 08:00 BP 168/62 11/23/16 08:00 Pulse Ox 96 11/23/16 08:00 Intake & Output 11/22/16 11/23/16 11/23/16 18:59 06:59 18:59 Intake Total 480 774.15 220 Balance 480 774.15 220 Weight 85.7 kg 84.5 kg Intake: IV 348 Heparin Sodium,Porcine/ 348 D5w Pmx 25,000 unit In Dextrose/Water 1 500ml. bag @ 11.29 UNITS/KG/HR 20 mls/hr IV .Q24H JEANN[facility] Rx #:[id number] Intake, IV Titration 426.15 Amount Heparin Sodium,Porcine/ 426.15 D5w Pmx 25,000 unit In Dextrose/Water 1 500ml. bag @ 11.29 UNITS/KG/HR 20 mls/hr IV .Q24H JEANNINE Rx #:[id number] Oral 480 220 Other: Voiding Method Toilet Toilet Toilet # Voids 3 2 - Exam PHYSICAL EXAMINATION: HEENT: Head is atraumatic, normocephalic. Pupils equal, round. Neck is supple. There is no elevated jugular venous pressure. HEART EXAMINATION: S1 and S2 systolic murmur is heard. CHEST EXAMINATION: Lungs are clear with improvement in air entry to bilateral bases. ABDOMEN: Soft, nontender. Bowel sounds are heard. No organomegaly noted. EXTREMITIES:[ 2+ peripheral pulses with evidence of peripheral edema NEUROLOGIC patient is awake, alert and oriented -3. . - Labs CBC & Chem 7: 11/23/16 05:58 11/23/16 05:58 Labs: Abnormal Lab Results - Last 24 Hours (Table) 11/22/16 11/22/16 11/22/16 Range/Units 11:57 14:35 16:40 APTT 49.2 H (22.0-30.0) sec BUN (9-20) mg/dL Creatinine (0.66-1.25) mg/dL Glucose (74-99) mg/dL POC Glucose (mg/dL) 178 H 164 H (75-99) mg/dL 11/22/16 11/23/16 11/23/16 Range/Units 20:44 05:58 05:58 APTT 48.2 H (22.0-30.0) sec BUN 58 H (9-20) mg/dL Creatinine 1.78 H (0.66-1.25) mg/dL Glucose 144 H (74-99) mg/dL POC Glucose (mg/dL) 190 H (75-99) mg/dL Assessment and Plan (1) Systolic CHF, acute on chronic Status: Acute (2) Diabetes Status: Acute (3) Hyperlipidemia Status: Acute (4) Hypertension Status: Acute (5) NSTEMI (non-ST elevated myocardial infarction) Status: Acute Plan: Cardiology's perspective, discontinue IV Lasix and change patient over to oral diuretics. He may be able to be discharged home from cardiology standpoint. He has an appointment with Dr. Reyes in January which we will keep. DNP note has been reviewed, I agree with a documented findings and plan of care. Patient was seen and examined.
--- NOTE | 2016-11-23 12:22 | P.PN ---
Subjective Progress note dated 11/23/2016 86-year-old male with a diagnosis of congestive heart failure. He also has a history of diabetes hyperlipidemia hypertension previous bypass surgery. Doing much better. Feels much improved. Will need to be discharged home on oxygen therapy. He'll see me in the office we'll determine whether or not he needs permanent oxygen. He also has a history of non-ST segment elevation myocardial infarction. No fever no chills. No cough. No chest pain. No nausea vomiting or diarrhea. He is feeling much better. Family in the room with him. Objective - Vital Signs Vital signs: Vital Signs Temp 98.7 F 11/23/16 08:00 Pulse 68 11/23/16 08:00 Resp 18 11/23/16 08:00 BP 168/62 11/23/16 08:00 Pulse Ox 96 11/23/16 08:00 Intake & Output 11/22/16 11/23/16 11/23/16 18:59 06:59 18:59 Intake Total 480 774.15 220 Balance 480 774.15 220 Weight 85.7 kg 84.5 kg Intake: IV 348 Heparin Sodium,Porcine/ 348 D5w Pmx 25,000 unit In Dextrose/Water 1 500ml. bag @ 11.29 UNITS/KG/HR 20 mls/hr IV .Q24H JEANNINE Rx #:[id number] Intake, IV Titration 426.15 Amount Heparin Sodium,Porcine/ 426.15 D5w Pmx 25,000 unit In Dextrose/Water 1 500ml. bag @ 11.29 UNITS/KG/HR 20 mls/hr IV .Q24H JEANNINE Rx #:[id number] Oral 480 220 Other: Voiding Method Toilet Toilet Toilet # Voids 3 2 - Exam No acute distress, oriented 3. HEENT examination is grossly unremarkable. Mucous membranes are moist. No oral lesions. Neck supple. Full range of motion. No adenopathy thyromegaly or neck vein distention. Cardiovascular examination reveals regular rhythm rate. S1-S2 normal. No S3 or murmur. Lungs reveal mostly clear breath sounds. A few scattered basilar crackles. No wheezes. Abdomen soft bowel sounds are heard. Extremities are intact. No cyanosis clubbing or edema. Skin without rash. Neurologic examination is brief but nonfocal. - Labs CBC & Chem 7: 11/23/16 05:58 11/23/16 05:58 Labs: Abnormal Lab Results - Last 24 Hours (Table) 11/22/16 11/22/16 11/22/16 Range/Units 11:57 14:35 16:40 APTT 49.2 H (22.0-30.0) sec BUN (9-20) mg/dL Creatinine (0.66-1.25) mg/dL Glucose (74-99) mg/dL POC Glucose (mg/dL) 178 H 164 H (75-99) mg/dL 11/22/16 11/23/16 11/23/16 Range/Units 20:44 05:58 05:58 APTT 48.2 H (22.0-30.0) sec BUN 58 H (9-20) mg/dL Creatinine 1.78 H (0.66-1.25) mg/dL Glucose 144 H (74-99) mg/dL POC Glucose (mg/dL) 190 H (75-99) mg/dL Assessment and Plan (1) Diabetes Status: Acute (2) Hypertension Status: Acute (3) Hyperlipidemia Status: Acute (4) Status post vascular bypass Status: Acute (5) Congestive heart failure Status: Acute (6) NSTEMI (non-ST elevated myocardial infarction) Status: Acute Plan: Plan dated 11/21/2016 The patient seemed be doing relatively well. Apparently the case was discussed with my partner in the ER doctor last night. The patient has yet to see cardiology but will see them soon. Labs x-rays a medications are reviewed. We' ll continue to follow. Prognosis is guarded. Plan dated 11/23/2016. The patient seemed be doing much better. The patient should be discharged home either today or tomorrow. I gave the family my card so that he comes back and sees me in the office either next week or the week after. We'll continue to follow closely. No additional recommendations are made. Prognosis is guarded. He will be discharged home on oxygen. We determine in the office whether or not he needs oxygen long-term. He probably will benefit from a room air resting saturation and a 6 minute walk distance. Time with Patient: Less than 30
[2016-11-23 14:39] VITALS: BP 135/63
--- NOTE | 2016-11-23 15:59 | P.DS ---
Providers Date of admission: 11/21/16 07:10 Expected date of discharge: 11/23/16 Attending physician: Sarwat Bunch Consults: 11/21/16 07:10 Consult Physician Urgent Consulting Provider: Charles Pradhan Consult Reason/Comments: nstemi, chf Do you want consulting provider notified?: Yes Primary care physician: [facility] Course: FINAL DIAGNOSES: -Possible acute non Q wave myocardial infarction, present on admission. -Acute on chronic congestive heart failure from systolic and diastolic dysfunction. Ejection fraction 45-50%from underlying coronary artery disease. -Acute hypoxia, requiring supplemental oxygen for oxygen saturations into the 80s, likely due to congestive heart failure. -Hypertensive heart disease. -Coronary artery disease. Previous bypass. -Diabetes mellitus type 2 on oral hypoglycemics. -Gastroesophageal reflux disease. -Hyperlipidemia. -Essential hypertension uncontrolled on presentation. -Chronic kidney disease stage III from hypertensive nephrosclerosis. HOSPTIAL COURSE: 86-year-old male who presented with increasing shortness of breath for about 2 weeks with cough, minimal sputum production. Afebrile. Mild edema noted admitted with an acute exacerbation of CHF., Found to have a non-Q wave myocardial infarction. Cardiology consulted, 2-D echo and IV heparin along with nitrates, aspirin, beta sana and statin with hydralazine for blood pressure control initiated. Pulmonology consulted, no changes made. Patient was found to desaturate without oxygen walking pulse ox revealed oxygen saturations without oxygen into the 80s therefore patient requires home oxygen therapy. No further episodes of chest pain or shortness of breath, medications adjusted. Patient tolerating his diet, ambulatory with assistance to and from the bathroom, last BM 11/22/2016. Patient's overall condition improved and is stabilized and as such will return home to the care of his family and home health care services. PHYSICAL EXAM: CARDIOVASCULAR: First and second sound noted mild edema RESPIRATORY: Effort normal, decreased breath sounds bilaterally, desaturates into the 80s without oxygen. MUSCULOSKELETAL: Gait steady with the use a walker PSYCHIATRY: Alert and oriented 3, mood and affect somewhat tired appearing Patient was seen and examined by nurse practitioner Bailee Delgado in all elements of the case discussed with attending Dr. Bunch DISPOSITION: Home to the care of his family and [facility] home care Patient Condition at Discharge: Serious Plan - Discharge Summary New Discharge Prescriptions: New Aspirin 81 mg PO DAILY Polyethylene Glycol 3350 [Miralax] 17 gm PO MoWeFr@0900 pack Atenolol [Tenormin] 12.5 mg PO DAILY tab hydrALAZINE HCL [Apresoline] 75 mg PO TID #120 tab Continue Nitroglycerin Sl Tabs [Nitrostat] 0.4 mg SUBLINGUAL Q5M PRN PRN Reason: Chest Pain Furosemide [Lasix] 40 mg PO BID amLODIPine [Norvasc] 10 mg PO HS Simvastatin [Zocor] 40 mg PO HS Glimepiride [Amaryl] 2 mg PO -[facility] Isosorbide Mononitrate [Isosorbide Mononitrate ER] 30 mg PO DAILY Atenolol [Tenormin] 12.5 mg PO DAILY Discontinued Aspirin 325 mg PO DAILY Discharge Medication List Atenolol [Tenormin] 12.5 mg PO DAILY 11/21/16 [History] Furosemide [Lasix] 40 mg PO BID 11/21/16 [History] Glimepiride [Amaryl] 2 mg PO -KFST 11/21/16 [History] Isosorbide Mononitrate [Isosorbide Mononitrate ER] 30 mg PO DAILY 11/21/16 [ History] Nitroglycerin Sl Tabs [Nitrostat] 0.4 mg SUBLINGUAL Q5M PRN 11/21/16 [History] Simvastatin [Zocor] 40 mg PO HS 11/21/16 [History] amLODIPine [Norvasc] 10 mg PO HS 11/21/16 [History] Aspirin 81 mg PO DAILY 11/22/16 [Rx] Polyethylene Glycol 3350 [Miralax] 17 gm PO MoWeFr@0900 pack 11/22/16 [Rx] Atenolol [Tenormin] 12.5 mg PO DAILY tab 11/23/16 [Rx] hydrALAZINE HCL [Apresoline] 75 mg PO TID #120 tab 11/23/16 [Rx] Follow up Appointment(s)/Referral(s): Charles Pradhan MD [STAFF PHYSICIAN] - 11/30/16 1:00 pm Mark Randolph DO [Primary Care Provider] - 12/08/16 1:00 pm [facility] Visiting Nurse, [NON-STAFF] - Ambulatory/Diagnostic Orders: Basic Metabolic Panel [LAB.AMB] Location: Determined By Patient
[2016-11-23 16:36] LABS: Glucose,Whole Blood 153 mg/dL (75-99)
--- NOTE | 2016-11-23 22:46 | DS ---
DISCHARGE SUMMARY ADDENDUM TO DISCHARGE SUMMARY: ATTENDING NOTE: This patient was seen examined by me. I discussed with my CHARHOUSE WORKER Pietro Nicholebandar. Patient is doing well. PHYSICAL EXAMINATION: On exam, his lungs reveal improved air entry. He has decreased edema. ASSESSMENT: 1. Acute non-Q-wave myocardial infarction/acute on chronic congestive heart failure from systolic and diastolic dysfunction, improving. 2. Acute hypoxic respiratory failure from congestive heart failure. PLAN: Care was discussed with the patient. The patient will need home oxygen if he desaturates to the 80s. MMODL / IJN: [id number] /
== END 2016-11-23 17:34 | disposition home health service (06) | DRG 280 ==
LOC: EC 05:46 → 6SEL 07:10
PROVIDERS: ADMIT Hospitalist; ATTEND Hospitalist
DX: I21.4 Non-ST elevation (NSTEMI) myocardial infarction (principal); I50.43 Acute on chronic combined systolic (congestive) and diastolic (congestive) heart failure; J96.01 Acute respiratory failure with hypoxia; I13.0 Hypertensive heart and chronic kidney disease with heart failure and stage 1 through stage 4 chronic kidney disease, or unspecified chronic kidney disease; N18.3 Chronic kidney disease, stage 3 (moderate); E11.22 Type 2 diabetes mellitus with diabetic chronic kidney disease; I25.10 Atherosclerotic heart disease of native coronary artery without angina pectoris; R26.9 Unspecified abnormalities of gait and mobility; K21.9 Gastro-esophageal reflux disease without esophagitis; E78.5 Hyperlipidemia, unspecified; Z96.1 Presence of intraocular lens; Z90.49 Acquired absence of other specified parts of digestive tract; Z98.61 Coronary angioplasty status; Z83.3 Family history of diabetes mellitus; Z82.3 Family history of stroke; Z79.899 Other long term (current) drug therapy; Z79.82 Long term (current) use of aspirin; Z79.84 Long term (current) use of oral hypoglycemic drugs; Z86.73 Personal history of transient ischemic attack (TIA), and cerebral infarction without residual deficits; Z95.1 Presence of aortocoronary bypass graft; Z98.41 Cataract extraction status, right eye; Z98.42 Cataract extraction status, left eye; Z99.81 Dependence on supplemental oxygen; I25.2 Old myocardial infarction
CPT/HCPCS: 36415; 71020; 80048; 80053; 80061; 82550; 82553; 83880; 84484; 85025; 85049; 85610; 85730; 93005; 93306; 96365; 96376; 99291

== ENCOUNTER 2016-11-25 09:04 | Inpatient (IN) | payer MEDICARE, BC ==
--- NOTE | 2016-11-25 09:32 | ED ---
General Adult HPI - General Chief complaint: Shortness of Breath Stated complaint: librado Time Seen by Provider: 11/25/16 09:05 Source: patient, RN notes reviewed Mode of arrival: ambulatory Limitations: no limitations - History of Present Illness Initial comments: This is an 86-year-old male who presents emergency Department with a past history significant for diabetes hypertension and congestive heart failure. Patient was just discharged from the hospital 2 days ago for congestive heart today. Patient states last evening he started becoming short of breath and the shortness of breath continued to get worse throughout the night. Patient states last night he was diaphoretic and also complained of gas pains in his chest which he states he gets on a regular basis and usually is relieved with first. Patient states last night he did drink some Versed the pain did seem to go away. Patient states he lay down because of the pain and shortness of breath when he woke up this morning he continued to be short of breath so decided come to the emergency department. Patient denies any recent fever chills or cough. Patient denies any abdominal pain patient denies any nausea or vomiting. Patient denies any lightheadedness dizziness or near syncopal episode. Patient denies any numbness or weakness. - Related Data Home Medications Medication Instructions Recorded Confirmed Furosemide [Lasix] 40 mg PO BID 11/21/16 11/25/16 Glimepiride [Amaryl] 2 mg PO AC-BRKFST 11/21/16 11/25/16 Isosorbide Mononitrate [Isosorbide 30 mg PO DAILY 11/21/16 11/25/16 Mononitrate ER] Nitroglycerin Sl Tabs [Nitrostat] 0.4 mg SUBLINGUAL Q5M PRN 11/21/16 11/25/16 Simvastatin [Zocor] 40 mg PO HS 11/21/16 11/25/16 amLODIPine [Norvasc] 10 mg PO HS 11/21/16 11/25/16 Aspirin 325 mg PO DAILY 11/25/16 11/25/16 Previous Rx's Medication Instructions Recorded Atenolol [Tenormin] 12.5 mg PO DAILY tab 11/23/16 hydrALAZINE HCL [Apresoline] 75 mg PO TID #120 tab 11/23/16 Allergies Allergy/AdvReac Type Severity Reaction Status Date / Time No Known Allergies Allergy Verified 11/25/16 10:06 Review of Systems ROS Statement: Those systems with pertinent positive or pertinent negative responses have been documented in the HPI. ROS Other: All systems not noted in ROS Statement are negative. 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 Last Myocardial Infarction Date:: 2006 History of Any Multi-Drug Resistant Organisms: None Reported Past Surgical History: Coronary Bypass/CABG, Heart Catheterization With Stent, Tonsillectomy Additional Past Surgical History / Comment(s): 2006 PCI with stent to RCA, 2006 3 vessel CABG, L caratid endartectomy, R knee arthroscopy, bilateral cataract removal with lens Past Anesthesia/Blood Transfusion Reactions: No Reported Reaction Date of Last Stent Placement:: 2006 Past Psychological History: No Psychological Hx Reported Smoking Status: Never smoker Past Alcohol Use History: None Reported Past Drug Use History: None Reported - Past Family History Father Family Medical History: CVA/TIA, Diabetes Mellitus Additional Family Medical History / Comment(s): Father at the age of 76yrs. He had problems with his diabetes and had double amputation of legs due to this. Mother Family Medical History: No Reported History Additional Family Medical History / Comment(s): Mother was healthy and lived to be 91 yrs old. General Exam - General Exam Comments Initial Comments: GENERAL: Patient is well-developed and well-nourished. Patient is nontoxic and well- hydrated and is in mild distress. ENT: Neck is soft and supple. No significant lymphadenopathy is noted. Oropharynx is clear. Moist mucous membranes. Neck has full range of motion without eliciting any pain. EYES: The sclera were anicteric and conjunctiva were pink and moist. Extraocular movements were intact and pupils were equal round and reactive to light. Eyelids were unremarkable. PULMONARY: Patient is crackles bilateral bases. Diminished breath sounds on the right CARDIOVASCULAR: There is a regular rate and rhythm without any murmurs gallops or rubs. ABDOMEN: Soft and nontender with normal bowel sounds. No palpable organomegaly was noted. There is no palpable pulsatile mass. SKIN: Skin is clear with no lesions or rashes and otherwise unremarkable. NEUROLOGIC: Patient is alert and oriented x3. Cranial nerves II through XII are grossly intact. Motor and sensory are also intact. Normal speech, volume and content. Symmetrical smile. MUSCULOSKELETAL: Normal extremities with adequate strength and full range of motion. No lower extremity swelling or edema. No calf tenderness. LYMPHATICS: No significant lymphadenopathy is noted PSYCHIATRIC: Normal psychiatric evaluation. Normal interpersonal interactions appears functionally intact in deals appropriately with others. No signs of depression. No signs of anxiety. Limitations: no limitations Course Vital Signs 11/25/16 11/25/16 11/25/16 09:06 09:26 09:47 Temperature 97.8 F 98.8 F Pulse Rate 79 Respiratory 25 H 20 18 Rate Blood Pressure 149/67 143/67 O2 Sat by Pulse 88 L Oximetry 11/25/16 11/25/16 11/25/16 09:49 10:12 11:00 Temperature Pulse Rate 83 83 77 Respiratory 18 18 18 Rate Blood Pressure 143/67 142/77 O2 Sat by Pulse 93 L 95 91 L Oximetry Medical Decision Making - Medical Decision Making EKG shows a junctional rhythm at about 90 bpm QRS is 98 QT interval 376 QTC is 459. Patient's EKG shows no ST segment elevation or depression. Patient's chest x-ray shows a new right-sided pleural effusion along with some mild venous congestion consistent with pulmonary edema. I spoke with Dr. Guzman he agreed to admit the patient admitted the patient I wrote admitting orders and consult cardiology I continued Lasix Nitropaste on the floor. Patient's troponin came back elevated so started the patient on heparin I continue the heparin on the floor. - Lab Data Result diagrams: 11/25/16 10:10 11/25/16 10:10 Lab Results 11/25/16 11/25/16 11/25/16 Range/Units 10:10 10:10 10:10 WBC 9.2 (3.8-10.6) k/uL RBC 4.30 (4.30-5.90) m/uL Hgb 12.3 L (13.0-17.5) gm/dL Hct 38.8 L (39.0-53.0) % MCV 90.2 (80.0-100.0) fL MCH 28.5 (25.0-35.0) pg MCHC 31.6 (31.0-37.0) g/dL RDW 14.7 (11.5-15.5) % Plt Count 211 (150-450) k/uL Neutrophils % 82 % Lymphocytes % 9 % Monocytes % 6 % Eosinophils % 0 % Basophils % 0 % Neutrophils # 7.5 (1.3-7.7) k/uL Lymphocytes # 0.9 L (1.0-4.8) k/uL Monocytes # 0.6 (0-1.0) k/uL Eosinophils # 0.0 (0-0.7) k/uL Basophils # 0.0 (0-0.2) k/uL PT (9.0-12.0) sec INR (<1.2) APTT (22.0-30.0) sec Sodium 144 (137-145) mmol/L Potassium 4.7 (3.5-5.1) mmol/L Chloride 103 (98-107) mmol/L Carbon Dioxide 28 (22-30) mmol/L Anion Gap 13 mmol/L BUN 78 H (9-20) mg/dL Creatinine 2.08 H (0.66-1.25) mg/dL Est GFR (MDRD) Af Amer 37 (>60 ml/min/1.73 sqM) Est GFR (MDRD) Non-Af 30 (>60 ml/min/1.73 sqM) Glucose 182 H (74-99) mg/dL Calcium 8.9 (8.4-10.2) mg/dL Magnesium 2.3 (1.6-2.3) mg/dL Total Bilirubin 0.9 (0.2-1.3) mg/dL AST 26 (17-59) U/L ALT 41 (21-72) U/L Alkaline Phosphatase 71 (38-126) U/L Total Creatine Kinase 38 L (55-170) U/L CK-MB (CK-2) 3.4 H* (0.0-2.4) ng/mL CK-MB (CK-2) Rel Index 8.9 Troponin I 0.897 H* (0.000-0.034) ng/mL NT-Pro-B Natriuret Pep pg/mL Total Protein 6.8 (6.3-8.2) g/dL Albumin 3.9 (3.5-5.0) g/dL 11/25/16 11/25/16 Range/Units 10:10 10:10 WBC (3.8-10.6) k/uL RBC (4.30-5.90) m/uL Hgb (13.0-17.5) gm/dL Hct (39.0-53.0) % MCV (80.0-100.0) fL MCH (25.0-35.0) pg MCHC (31.0-37.0) g/dL RDW (11.5-15.5) % Plt Count (150-450) k/uL Neutrophils % % Lymphocytes % % Monocytes % % Eosinophils % % Basophils % % Neutrophils # (1.3-7.7) k/uL Lymphocytes # (1.0-4.8) k/uL Monocytes # (0-1.0) k/uL Eosinophils # (0-0.7) k/uL Basophils # (0-0.2) k/uL PT 11.0 (9.0-12.0) sec INR 1.1 (<1.2) APTT 24.9 (22.0-30.0) sec Sodium (137-145) mmol/L Potassium (3.5-5.1) mmol/L Chloride (98-107) mmol/L Carbon Dioxide (22-30) mmol/L Anion Gap mmol/L BUN (9-20) mg/dL Creatinine (0.66-1.25) mg/dL Est GFR (MDRD) Af Amer (>60 ml/min/1.73 sqM) Est GFR (MDRD) Non-Af (>60 ml/min/1.73 sqM) Glucose (74-99) mg/dL Calcium (8.4-10.2) mg/dL Magnesium (1.6-2.3) mg/dL Total Bilirubin (0.2-1.3) mg/dL AST (17-59) U/L ALT (21-72) U/L Alkaline Phosphatase (38-126) U/L Total Creatine Kinase (55-170) U/L CK-MB (CK-2) (0.0-2.4) ng/mL CK-MB (CK-2) Rel Index Troponin I (0.000-0.034) ng/mL NT-Pro-B Natriuret Pep 48816 pg/mL Total Protein (6.3-8.2) g/dL Albumin (3.5-5.0) g/dL Critical Care Time Critical Care Time: Yes Total Critical Care Time: 35 Disposition Clinical Impression: Pulmonary edema, Non-STEMI (non-ST elevated myocardial infarction) Disposition: ADMITTED IP TO THIS [facility] Time of Disposition: 10:56
[2016-11-25 10:23] LABS: Basophils % (A) 0 %; CH 29.8; CHCM 33.2; Eosinophils % (A) 0 %; HCT 38.8 % (39.0-53.0); HDW 2.61; HGB 12.3 gm/dL (13.0-17.5); Luc # (Auto) 0.22; Luc % (Auto) 2; Lymphocytes # (A) 0.9 k/uL (1.0-4.8); Lymphocytes % (A) 9 %; MCH 28.5 pg (25.0-35.0); MCHC 31.6 g/dL (31.0-37.0); MCV 90.2 fL (80.0-100.0); Mean Platelet Volume 8.4; Monocytes # (A) 0.6 k/uL (0-1.0); Monocytes % (A) 6 %; Neutrophils # (A) 7.5 k/uL (1.3-7.7); Neutrophils % (A) 82 %; RDW 14.7 % (11.5-15.5); WBC 9.2 k/uL (3.8-10.6); WBC (Perox) 9.84
[2016-11-25 10:32] LABS: INR 1.1 (<1.2); Partial Thromboplastin Time 24.9 sec (22.0-30.0)
[2016-11-25 10:36] LABS: Calcium 8.9 mg/dL (8.4-10.2); Magnesium 2.3 mg/dL (1.6-2.3); Potassium 4.7 mmol/L (3.5-5.1); Total Bilirubin 0.9 mg/dL (0.2-1.3); Total Protein 6.8 g/dL (6.3-8.2)
--- NOTE | 2016-11-25 10:41 | XR ---
EXAMINATION TYPE: XR chest 2V DATE OF EXAM: 11/25/2016 COMPARISON: 11/21/2016 INDICATION: Difficulty breathing TECHNIQUE: Frontal and lateral views of the chest are obtained. FINDINGS: The heart size is mildly prominent. The pulmonary vasculature is normal. Posterior pleural effusions are present. Right lower lobe infiltrate is present.. IMPRESSION: 1. Mild right lower lobe infiltrate. Correlate for developing pneumonia. 2. Developing posterior pleural effusions.
[2016-11-25] MEDS ORDERED: FUROSEMIDE 10 MG/ML 4 ML VIAL IV STA (10:54)
[2016-11-25] MEDS ORDERED: NITROGLYCERIN OINT 1 INCH/GM PACKET TOPICAL STA (10:58)
[2016-11-25 11:07] LABS: Creatine Kinase MB 3.4 ng/mL (0.0-2.4)
[2016-11-25 11:08] LABS: Troponin I 0.897 ng/mL (0.000-0.034)
[2016-11-25] MEDS ORDERED: HEPARIN SODIUM,PORCINE 5,000 UNIT/ML 1 ML VIAL IV ONE (11:10)
[2016-11-25] MEDS: HEPARIN SODIUM,PORCINE/D5W PMX 25,000 UNIT in DEXTROSE/WATER 1 500ML.BAG IV SCH (11:29)
[2016-11-25 12:20] LABS: Glucose,Whole Blood 158 mg/dL (75-99)
[2016-11-25 13:18] VITALS: BMI 30.3
[2016-11-25] MEDS: ATENOLOL 12.5 MG TAB PO SCH (14:23)
[2016-11-25] MEDS: FUROSEMIDE 10 MG/ML 4 ML VIAL IV SCH ×2 (15:29→22:25)
[2016-11-25 16:22] LABS: Glucose,Whole Blood 216 mg/dL (75-99)
[2016-11-25] MEDS: INSULIN LISPRO (humaLOG) 300 UNIT/3 ML VIAL SQ SCH ×2 (17:11→22:25)
[2016-11-25] MEDS: NITROGLYCERIN OINT 1 INCH/GM PACKET TOPICAL SCH ×2 (17:12→22:25)
[2016-11-25] MEDS ORDERED: HEPARIN SODIUM,PORCINE 5,000 UNIT/ML 1 ML VIAL IV PRN (18:54)
[2016-11-25 19:42] LABS: Hemoglobin A1C 7.2 % (4.2-6.1)
[2016-11-25 21:12] LABS: Glucose,Whole Blood 159 mg/dL (75-99)
--- NOTE | 2016-11-25 21:54 | P.HPIM ---
History of Present Illness H&P Date: 11/25/16 Chief Complaint: Difficulty breathing This is an 86-year-old male with a a past history significant for diabetes-2, hypertension and congestive heart failure presented to ER with worsening short of breath.. Patient was just discharged from the hospital on 11/21/2016 after treating for CHF exacerbation and non-ST elevated NC.. Patient states last evening he started becoming short of breath and the shortness of breath continued to get worse throughout the night. Patient states last night he did drink some Versed the pain did seem to go away. Patient states he lay down because of the pain and shortness of breath when he woke up this morning he continued to be short of breath so decided come to the emergency department. Patient denies any recent fever chills or cough. Patient denies any abdominal pain patient denies any nausea or vomiting. Patient denies any lightheadedness dizziness or near syncopal episode. Patient denies any numbness or weakness. Patient was found to have elevated BNP at 23K. Elevated troponin level 0.897 Chest x-ray showed mild right lower lobe infiltrate and posterior pleural effusion. Review of Systems CONSTITUTIONAL: No fever, no malaise, no fatigue. HEENT: No recent visual problems or hearing problems. Denied any sore throat. CARDIOVASCULAR: No chest pain, positive orthopnea, positive PND, no palpitations , no syncope. Leg swelling. PULMONARY: , Shortness of breath and cough. no hemoptysis. GASTROINTESTINAL: No diarrhea, no nausea, no vomiting, no abdominal pain. Normoactive bowel sounds. NEUROLOGICAL: No headaches, no weakness, no numbness. HEMATOLOGICAL: Denies any bleeding or petechiae. GENITOURINARY: Denies any burning micturition, frequency, or urgency. MUSCULOSKELETAL/RHEUMATOLOGICAL: Denies any joint pain, swelling, or any muscle pain. ENDOCRINE: Denies any polyuria or polydipsia. The rest of the 14-point review of systems is negative. Past Medical History Past Medical History: Coronary Artery Disease (CAD), Heart Failure, CVA/TIA, Diabetes Mellitus, GERD/Reflux, Hyperlipidemia, Hypertension, Myocardial Infarction ([place]), Renal Disease Additional Past Medical History / Comment(s): Pt recently admitted 11/21/16 with possible non Q wave NC/CHF/hypoxia. Other hx: NIDDM type II, CVA in 2003- causes alittle drooling but no difficulty swallowing, CKD stage III, bilateral ears-cerumen build up, occasional back pain. Last Myocardial Infarction Date:: 2016? History of Any Multi-Drug Resistant Organisms: None Reported Past Surgical History: Coronary Bypass/CABG, Heart Catheterization With Stent, Tonsillectomy Additional Past Surgical History / Comment(s): 2006 PCI with stent to RCA, 2006 3 vessel CABG, L caratid endartectomy, R knee arthroscopy, bilateral cataract removal with lens Past Anesthesia/Blood Transfusion Reactions: No Reported Reaction Date of Last Stent Placement:: 2006 Smoking Status: Never smoker - Past Family History Father Family Medical History: CVA/TIA, Diabetes Mellitus Additional Family Medical History / Comment(s): Father at the age of 76yrs. He had problems with his diabetes and had double amputation of legs due to this. Mother Family Medical History: No Reported History Additional Family Medical History / Comment(s): Mother was healthy and lived to be 91 yrs old. Medications and Allergies Home Medications Medication Instructions Recorded Confirmed Type Furosemide [Lasix] 40 mg PO BID 11/21/16 11/25/16 History Glimepiride [Amaryl] 2 mg PO AC-BRKFST 11/21/16 11/25/16 History Isosorbide Mononitrate [Isosorbide 30 mg PO DAILY 11/21/16 11/25/16 History Mononitrate ER] Nitroglycerin Sl Tabs [Nitrostat] 0.4 mg SUBLINGUAL Q5M PRN 11/21/16 11/25/16 History Simvastatin [Zocor] 40 mg PO HS 11/21/16 11/25/16 History amLODIPine [Norvasc] 10 mg PO HS 11/21/16 11/25/16 History Atenolol [Tenormin] 12.5 mg PO DAILY tab 11/23/16 11/25/16 Rx hydrALAZINE HCL [Apresoline] 75 mg PO TID #120 tab 11/23/16 11/25/16 Rx Aspirin 325 mg PO DAILY 11/25/16 11/25/16 History Allergies Allergy/AdvReac Type Severity Reaction Status Date / Time No Known Allergies Allergy Verified 11/25/16 10:06 Physical Exam Vitals: Vital Signs Temp Pulse Resp BP Pulse Ox 11/25/16 11:00 77 18 142/77 91 L 11/25/16 10:12 83 18 95 11/25/16 09:49 83 18 143/67 93 L 11/25/16 09:47 18 11/25/16 09:26 98.8 F 20 143/67 11/25/16 09:06 97.8 F 79 25 H 149/67 88 L Intake and Output 11/24/16 11/25/16 11/25/16 22:59 06:59 14:59 Intake Total 240 Balance 240 Intake: Oral 240 Other: Weight 87.9 kg Patient Weight 11/26/16 06:59 Weight 87.9 kg PHYSICAL EXAMINATION: Patient is lying in the bed comfortably, no acute distress, awake alert and oriented.. HEENT: Normocephalic. Neck is supple. Pupils reactive. Nostrils clear. Oral cavity is moist and drooling on the right side. Ears reveal no drainage. Neck reveals no JVD, carotid bruits, or thyromegaly. CHEST EXAMINATION: Trachea is central. Symmetrical expansion. Bilateral rhonchi positive. Right basilar crackles positive CARDIAC: Normal S1, S2 with no gallops. No murmurs ABDOMEN: Soft. Bowel sounds normal. No organomegaly. No abdominal bruits. Extremities: 1+ edema. No clubbing or cyanosis Neurologically awake, alert, oriented x3 with well-coordinated movements. Skin: no rash or skin lesions Musculoskeletal: no joint swelling or deformity. Results CBC & Chem 7: 11/25/16 10:10 11/25/16 10:10 Labs: Abnormal Lab Results - Last 24 Hours (Table) 11/25/16 11/25/16 11/25/16 Range/Units 10:10 10:10 10:10 Hgb 12.3 L (13.0-17.5) gm/dL Hct 38.8 L (39.0-53.0) % Lymphocytes # 0.9 L (1.0-4.8) k/uL BUN 78 H (9-20) mg/dL Creatinine 2.08 H (0.66-1.25) mg/dL Glucose 182 H (74-99) mg/dL POC Glucose (mg/dL) (75-99) mg/dL Total Creatine Kinase 38 L (55-170) U/L CK-MB (CK-2) 3.4 H* (0.0-2.4) ng/mL Troponin I 0.897 H* (0.000-0.034) ng/mL 11/25/16 Range/Units 11:51 Hgb (13.0-17.5) gm/dL Hct (39.0-53.0) % Lymphocytes # (1.0-4.8) k/uL BUN (9-20) mg/dL Creatinine (0.66-1.25) mg/dL Glucose (74-99) mg/dL POC Glucose (mg/dL) 158 H (75-99) mg/dL Total Creatine Kinase (55-170) U/L CK-MB (CK-2) (0.0-2.4) ng/mL Troponin I (0.000-0.034) ng/mL Thrombosis Risk Factor Assmnt - DVT/VTE Prophylaxis DVT/VTE Prophylaxis: Pharmacologic Prophylaxis ordered - Choose All That Apply Any of the Below Risk Factors Present?: Yes Each Factor Represents 1 point: Acute NC, Heart failure (<1month), Obesity (BMI >25) Other Risk Factors: Yes Each Risk Factor Represents 3 Points: Age 75 years or older Other congenital or acquired thrombophilia - If yes, enter type in comment: No Thrombosis Risk Factor Assessment Total Risk Factor Score: 6 Thrombosis Risk Factor Assessment Level: High Risk Assessment and Plan Plan: #1 difficulty breathing secondary to acute on chronic CHF with diastolic and systolic dysfunction. Ejection fraction 40-45% #2 elevated troponin level possible non-ST elevated NC #3 history of coronary artery disease and also history of CABG #4 history of CVA with minimal drooling. #5 hypertension #6 diabetes mellitus type 2 with HbA1c 7.2. [id number] #7 hyperlipidemia #8 GERD #9 history of NC Plan: Patient will be continued on IV diuresis with IV Lasix and and continue to monitor renal function. We will continue with the aspirin and statins and atenolol. Cardiology has been consulted. Continue with insulin sliding scale and DVT prophylaxis. Further recommendations based on the clinical course. Prognosis is guarded. Time with Patient: Greater than 30
[2016-11-25] MEDS: ATORVASTATIN 40 MG TAB PO SCH (22:25)
[2016-11-26] MEDS: INSULIN LISPRO (humaLOG) 300 UNIT/3 ML VIAL SQ SCH ×5 (06:45→22:25)
[2016-11-26 06:57] LABS: Basophils % (A) 0 %; CH 29.2; CHCM 32.3; Eosinophils % (A) 0 %; HCT 35.7 % (39.0-53.0); HDW 2.58; HGB 11.4 gm/dL (13.0-17.5); Luc # (Auto) 0.21; Luc % (Auto) 3; Lymphocytes # (A) 1.4 k/uL (1.0-4.8); Lymphocytes % (A) 19 %; MCHC 31.9 g/dL (31.0-37.0); MCV 90.9 fL (80.0-100.0); Mean Platelet Volume 8.7; Monocytes # (A) 0.5 k/uL (0-1.0); Monocytes % (A) 7 %; Neutrophils # (A) 5.1 k/uL (1.3-7.7); Neutrophils % (A) 71 %; RBC 3.93 m/uL (4.30-5.90); RDW 14.5 % (11.5-15.5); WBC 7.2 k/uL (3.8-10.6); WBC (Perox) 7.08
[2016-11-26 07:23] LABS: Glucose,Whole Blood 164 mg/dL (75-99)
[2016-11-26 07:30] LABS: Calcium 8.6 mg/dL (8.4-10.2); Potassium 4.6 mmol/L (3.5-5.1)
--- NOTE | 2016-11-26 07:50 | XR ---
EXAMINATION TYPE: XR chest 1V DATE OF EXAM: 11/26/2016 HISTORY: SOB. REFERENCE: Previous study dated 11/25/2016. FINDINGS: There has been a midline sternotomy. There is worsening right basilar airspace disease. There are worsening bilateral effusions. There is developing left basilar airspace disease. The heart is enlarged. Pulmonary vasculature is mildly prom inent. No definite edema is seen. IMPRESSION: 1. CARDIOMEGALY. 2. WORSENING BIBASILAR AIRSPACE DISEASE, GREATER ON THE RIGHT AND LEFT. 3. BILATERAL EFFUSIONS, GREATER ON THE RIGHT LEFT.
[2016-11-26] MEDS: ATENOLOL 12.5 MG TAB PO SCH (08:21)
[2016-11-26] MEDS: FUROSEMIDE 10 MG/ML 4 ML VIAL IV SCH (08:21)
[2016-11-26] MEDS: NITROGLYCERIN OINT 1 INCH/GM PACKET TOPICAL SCH ×4 (08:21→22:25)
[2016-11-26] MEDS ORDERED: ASPIRIN 325 MG TAB PO SCH (09:00)
--- NOTE | 2016-11-26 11:43 | P.CRDCN ---
History of Present Illness Consult date: 11/26/16 Chief complaint: Shortness of breath History of present illness: This is a pleasant 86-year-old gentleman who sees Dr. Sharp as an outpatient with a past medical history significant for CAD with prior CABG with unknown details at this point, ischemic cardiomyopathy with a known ejection fraction of 40-45%, mild pulmonary hypertension, as well as recurrent CHF, presented to the hospital with shortness of breath. The patient just was discharged from the hospital 2 days ago with acute exacerbation of congestive heart failure secondary to systolic dysfunction. This time he started experiencing a worsening exertional dyspnea as well as bilateral lower extremities edema. He denies having any chest pain or chest discomfort. The chest x-ray showed findings consistent with CHF. The BNP came in to be around 3500s. The patient was started on Lasix IV yesterday at 40 mg 3 times a day but the kidney function is definitely worse today. I will decrease the dose of Lasix to 40 mg IV daily. Continue monitor the kidney function and electrolytes. No need to repeat the echocardiogram. Past Medical History Past Medical History: Coronary Artery Disease (CAD), Heart Failure, CVA/TIA, Diabetes Mellitus, GERD/Reflux, Hyperlipidemia, Hypertension, Myocardial Infarction (DE), Renal Disease Additional Past Medical History / Comment(s): Pt recently admitted 11/21/16 with possible non Q wave DE/CHF/hypoxia. Other hx: NIDDM type II, CVA in 2002- causes alittle drooling but no difficulty swallowing, CKD stage III, bilateral ears-cerumen build up, occasional back pain. Last Myocardial Infarction Date:: 2016? History of Any Multi-Drug Resistant Organisms: None Reported Past Surgical History: Coronary Bypass/CABG, Heart Catheterization With Stent, Tonsillectomy Additional Past Surgical History / Comment(s): 2006 PCI with stent to RCA, 2006 3 vessel CABG, L caratid endartectomy, R knee arthroscopy, bilateral cataract removal with lens Past Anesthesia/Blood Transfusion Reactions: No Reported Reaction Date of Last Stent Placement:: 2006 Smoking Status: Never smoker - Past Family History Father Family Medical History: CVA/TIA, Diabetes Mellitus Additional Family Medical History / Comment(s): Father at the age of 76yrs. He had problems with his diabetes and had double amputation of legs due to this. Mother Family Medical History: No Reported History Additional Family Medical History / Comment(s): Mother was healthy and lived to be 91 yrs old. Medications and Allergies Home Medications Medication Instructions Recorded Confirmed Type Furosemide [Lasix] 40 mg PO BID 11/21/16 11/25/16 History Glimepiride [Amaryl] 2 mg PO AC-BRKFST 11/21/16 11/25/16 History Isosorbide Mononitrate [Isosorbide 30 mg PO DAILY 11/21/16 11/25/16 History Mononitrate ER] Nitroglycerin Sl Tabs [Nitrostat] 0.4 mg SUBLINGUAL Q5M PRN 11/21/16 11/25/16 History Simvastatin [Zocor] 40 mg PO HS 11/21/16 11/25/16 History amLODIPine [Norvasc] 10 mg PO HS 11/21/16 11/25/16 History Atenolol [Tenormin] 12.5 mg PO DAILY tab 11/23/16 11/25/16 Rx hydrALAZINE HCL [Apresoline] 75 mg PO TID #120 tab 11/23/16 11/25/16 Rx Aspirin 325 mg PO DAILY 11/25/16 11/25/16 History Allergies Allergy/AdvReac Type Severity Reaction Status Date / Time No Known Allergies Allergy Verified 11/25/16 10:06 Physical Exam Vitals: Vital Signs Temp Pulse Resp BP Pulse Ox 11/26/16 08:31 92 L 11/26/16 08:00 98.3 F 68 20 134/61 91 L 11/26/16 04:00 97.9 F 66 20 130/62 91 L 11/26/16 00:00 97.9 F 63 18 145/67 92 L 11/25/16 20:00 97.9 F 72 20 142/82 90 L 11/25/16 17:25 20 94 L 11/25/16 16:00 97.9 F 66 20 112/56 88 L 11/25/16 13:41 20 96 11/25/16 13:33 97.6 F 83 20 158/73 88 L Intake and Output 11/25/16 11/26/16 11/26/16 22:59 06:59 14:59 Intake Total 372.742 171.873 333.866 Output Total 700 Balance 372.742 -528.127 333.866 Intake: Intake, IV Titration 150.742 171.873 153.866 Amount Heparin Sodium,Porcine/ 150.742 171.873 153.866 D5w Pmx 25,000 unit In Dextrose/Water 1 500ml. bag @ 11.55 UNITS/KG/HR 20.01 mls/hr IV .Q24H [facility] Rx#:[id number] Oral 222 180 Output: Urine 700 Other: Voiding Method Urinal Urinal Weight 87.9 kg 86 kg - Constitutional General appearance: no acute distress - Respiratory Respiratory: bilateral: diminished - Cardiovascular Rhythm: regular Heart sounds: normal: S1, S2 Abnormal Heart Sounds: systolic murmur Results 11/26/16 06:43 11/26/16 06:43 Coagulation 11/25/16 11/26/16 11/26/16 Range/Units 17:27 00:56 06:43 APTT 29.5 42.2 H 44.0 H (22.0-30.0) sec CBC 11/26/16 Range/Units 06:43 WBC 7.2 (3.8-10.6) k/uL RBC 3.93 L (4.30-5.90) m/uL Hgb 11.4 L (13.0-17.5) gm/dL Hct 35.7 L (39.0-53.0) % Plt Count 187 (150-450) k/uL Comprehensive Metabolic Panel 11/26/16 Range/Units 06:43 Sodium 144 (137-145) mmol/L Potassium 4.6 (3.5-5.1) mmol/L Chloride 103 (98-107) mmol/L Carbon Dioxide 29 (22-30) mmol/L BUN 85 H* (9-20) mg/dL Creatinine 2.03 H (0.66-1.25) mg/dL Glucose 159 H (74-99) mg/dL Calcium 8.6 (8.4-10.2) mg/dL Current Medications Generic Name Dose Route Start Last Admin Trade Name Freq PRN Reason Stop Dose Admin Aspirin 325 mg 11/26/16 09:00 11/26/16 08:21 Aspirin PO 325 mg DAILY JEANNINE Administration Atenolol 12.5 mg 11/25/16 13:45 11/26/16 08:21 Tenormin PO 12.5 mg DAILY JEANNINE Administration Atorvastatin Calcium 40 mg 11/25/16 21:00 11/25/16 22:25 Lipitor PO 40 mg HS JEANNINE Administration Furosemide 40 mg 11/27/16 09:00 Lasix IV DAILY [facility] Heparin Sodium (Porcine) 0 unit 11/25/16 18:54 11/25/16 19:00 Heparin IV 4,000 unit PER PROTOCOL PRN Administration Low PTT Protocol Heparin Sodium/Dextrose 25,000 500 mls @ 20.01 mls/hr 11/25/16 11:15 07:08 unit/ IV Solution IV 18.6 units/kg/hr .Q24H JE[facility] 32.22 mls/hr Protocol Titration 11.55 UNITS/KG/HR Insulin Human Lispro 0 unit 11/25/16 17:30 11/26/16 06:45 Humalog SQ 1 unit ACHS JEANNINE Administration Protocol Nitroglycerin 1 inch 11/25/16 18:00 11/26/16 08:21 Nitro-Bid Oint TOPICAL 1 inch QID JEANNINE Administration Intake and Output 11/25/16 11/26/16 11/26/16 22:59 06:59 14:59 Intake Total 372.742 171.873 333.866 Output Total 700 Balance 372.742 -528.127 333.866 Intake: Intake, IV Titration 150.742 171.873 153.866 Amount Heparin Sodium,Porcine/ 150.742 171.873 153.866 D5w Pmx 25,000 unit In Dextrose/Water 1 500ml. bag @ 11.55 UNITS/KG/HR 20.01 mls/hr IV .Q24H [facility] Rx#:[id number] Oral 222 180 Output: Urine 700 Other: Voiding Method Urinal Urinal Weight 87.9 kg 86 kg 11/26/16 06:43 11/26/16 06:43 Assessment and Plan Plan: This is a pleasant 86-year-old gentleman with known CAD and prior CABG and CHF presented back to the hospital with progressive dyspnea and was diagnosed with CHF secondary to systolic dysfunction. I will decrease the dose of Lasix to 40 mg IVP daily in view of deteriorating kidney function. Continue monitor his kidney function and electrolytes on daily basis. I had a long discussion with his family. The patient might need to have a heart catheterization to rule out any severe underlying CAD which could be the etiology behind his recurrent CHF hospitalization.
[2016-11-26 12:04] LABS: Glucose,Whole Blood 246 mg/dL (75-99)
[2016-11-26 17:22] LABS: Glucose,Whole Blood 156 mg/dL (75-99)
[2016-11-26 21:28] LABS: Glucose,Whole Blood 245 mg/dL (75-99)
[2016-11-26] MEDS: ATORVASTATIN 40 MG TAB PO SCH (22:24)
[2016-11-26 23:01] LABS: Glucose,Whole Blood 271 mg/dL (75-99)
[2016-11-26] MEDS ORDERED: FUROSEMIDE 10 MG/ML 4 ML VIAL IV STA (23:02)
--- NOTE | 2016-11-26 23:23 | XR ---
EXAM: XR Chest, 1 View CLINICAL HISTORY: Reason: possible pulmonary edema TECHNIQUE: Frontal view of the chest. COMPARISON: 11/26/16 FINDINGS: Increasing perihilar scratch that increasing bilateral perihilar pulmonary opacities. Increasing small bilateral pleural effusions. Moderate cardiomegaly with pulmonary venous congestion. CABG changes noted. Osseous structures intact. IMPRESSION: CHF with moderate pulmonary edema and small bilateral pleural effusions.
[2016-11-26 23:42] LABS: Basophils % (A) 0 %; CH 28.9; CHCM 31.1; Eosinophils # (A) 0.1 k/uL (0-0.7); Eosinophils % (A) 1 %; HCT 36.8 % (39.0-53.0); HDW 2.61; HGB 11.7 gm/dL (13.0-17.5); Hypochromasia Slight; Luc % (Auto) 2; Lymphocytes # (A) 0.7 k/uL (1.0-4.8); Lymphocytes % (A) 7 %; MCH 29.7 pg (25.0-35.0); MCHC 31.7 g/dL (31.0-37.0); MCV 93.5 fL (80.0-100.0); Mean Platelet Volume 8.4; Monocytes # (A) 0.8 k/uL (0-1.0); Monocytes % (A) 8 %; Neutrophils # (A) 8.7 k/uL (1.3-7.7); Neutrophils % (A) 83 %; RBC 3.94 m/uL (4.30-5.90); RDW 14.5 % (11.5-15.5); WBC 10.5 k/uL (3.8-10.6)
[2016-11-27 00:15] LABS: Calcium 8.3 mg/dL (8.4-10.2)
[2016-11-27 00:20] LABS: Potassium 5.3 mmol/L (3.5-5.1)
[2016-11-27 06:13] LABS: Glucose,Whole Blood 268 mg/dL (75-99)
[2016-11-27] MEDS: INSULIN LISPRO (humaLOG) 300 UNIT/3 ML VIAL SQ SCH (06:55)
[2016-11-27] MEDS: HEPARIN SODIUM,PORCINE/D5W PMX 25,000 UNIT in DEXTROSE/WATER 1 500ML.BAG IV SCH (07:03)
[2016-11-27] MEDS: NITROGLYCERIN OINT 1 INCH/GM PACKET TOPICAL SCH (08:44)
[2016-11-27] MEDS ORDERED: FUROSEMIDE 10 MG/ML 4 ML VIAL IV SCH (09:00)
[2016-11-27 09:22] VITALS: BP 115/54; PULSE 72; RESP 20; TEMP 98.5
[2016-11-27 10:49] LABS: Calcium 8.8 mg/dL (8.4-10.2); Potassium 5.9 mmol/L (3.5-5.1)
--- NOTE | 2016-11-27 23:22 | P.PN ---
Subjective Principal diagnosis: Acute CHF exacerbation biventricular failure This is an 86-year-old male with a a past history significant for diabetes-2, hypertension and congestive heart failure presented to ER with worsening short of breath.. Patient was just discharged from the hospital on 11/21/2016 after treating for CHF exacerbation and non-ST elevated CA.. Patient states last evening he started becoming short of breath and the shortness of breath continued to get worse throughout the night. Patient states last night he did drink some Versed the pain did seem to go away. Patient states he lay down because of the pain and shortness of breath when he woke up this morning he continued to be short of breath so decided come to the emergency department. Patient denies any recent fever chills or cough. Patient denies any abdominal pain patient denies any nausea or vomiting. Patient denies any lightheadedness dizziness or near syncopal episode. Patient denies any numbness or weakness. Patient was found to have elevated BNP at 23K. Elevated troponin level 0.897 Chest x-ray showed mild right lower lobe infiltrate and posterior pleural effusion. 11/26/2016 Patient's respiratory status slightly improved today. Lasix has been changed to pills. Patient is a 4 history in. Denied any short of breath or chest pain. No fever no chills. No nausea or vomiting abdominal pain. Family is considering DO NOT RESUSCITATE/DO NOT INTUBATE. Objective - Vital Signs Vital signs: Vital Signs Temp 98.3 F 11/26/16 12:00 Pulse 63 11/26/16 12:00 Resp 20 11/26/16 12:00 BP 157/70 11/26/16 12:00 Pulse Ox 90 L 11/26/16 12:00 Intake & Output 11/25/16 11/26/16 11/26/16 18:59 06:59 18:59 Intake Total 462 322.615 591.466 Output Total 700 Balance 462 -377.385 591.466 Weight 87.9 kg 86 kg Intake: IV 257.6 Heparin Sodium,Porcine/ 257.6 D5w Pmx 25,000 unit In Dextrose/Water 1 500ml. bag @ 11.55 UNITS/KG/HR 20.01 mls/hr IV .Q24H [facility] Rx#:[id number] Intake, IV Titration 322.615 153.866 Amount Heparin Sodium,Porcine/ 322.615 153.866 D5w Pmx 25,000 unit In Dextrose/Water 1 500ml. bag @ 11.55 UNITS/KG/HR 20.01 mls/hr IV .Q24H [facility] Rx#:[id number] Oral 462 180 Output: Urine 700 Other: Voiding Method Urinal - Exam Patient is lying in the bed comfortably, no acute distress, awake alert confused and lethargic. HEENT: Normocephalic. Neck is supple. Pupils reactive. Nostrils clear. Oral cavity is moist and drooling on the right side. Ears reveal no drainage. Neck reveals no JVD, carotid bruits, or thyromegaly. CHEST EXAMINATION: Trachea is central. Symmetrical expansion. Bilateral rhonchi positive. Right basilar crackles positive CARDIAC: Normal S1, S2 with no gallops. No murmurs ABDOMEN: Soft. Bowel sounds normal. No organomegaly. No abdominal bruits. Extremities: 1+ edema. No clubbing or cyanosis Neurologically awake, alert, oriented x2 with well-coordinated movements. Skin: no rash or skin lesions Musculoskeletal: no joint swelling or deformity. - Labs CBC & Chem 7: 11/26/16 23:35 11/27/16 05:41 Labs: Abnormal Lab Results - Last 24 Hours (Table) 11/25/16 11/25/16 11/25/16 Range/Units 10:15 16:15 21:03 RBC (4.30-5.90) m/uL Hgb (13.0-17.5) gm/dL Hct (39.0-53.0) % APTT (22.0-30.0) sec BUN (9-20) mg/dL Creatinine (0.66-1.25) mg/dL Glucose (74-99) mg/dL POC Glucose (mg/dL) 216 H 159 H (75-99) mg/dL Hemoglobin A1c 7.2 H (4.2-6.1) % 11/26/16 11/26/16 11/26/16 Range/Units 00:56 06:27 06:43 RBC 3.93 L (4.30-5.90) m/uL Hgb 11.4 L (13.0-17.5) gm/dL Hct 35.7 L (39.0-53.0) % APTT 42.2 H (22.0-30.0) sec BUN (9-20) mg/dL Creatinine (0.66-1.25) mg/dL Glucose (74-99) mg/dL POC Glucose (mg/dL) 164 H (75-99) mg/dL Hemoglobin A1c (4.2-6.1) % 11/26/16 11/26/16 11/26/16 Range/Units 06:43 06:43 11:38 RBC (4.30-5.90) m/uL Hgb (13.0-17.5) gm/dL Hct (39.0-53.0) % APTT 44.0 H (22.0-30.0) sec BUN 85 H* (9-20) mg/dL Creatinine 2.03 H (0.66-1.25) mg/dL Glucose 159 H (74-99) mg/dL POC Glucose (mg/dL) 246 H (75-99) mg/dL Hemoglobin A1c (4.2-6.1) % 11/26/16 Range/Units 12:50 RBC (4.30-5.90) m/uL Hgb (13.0-17.5) gm/dL Hct (39.0-53.0) % APTT 47.9 H (22.0-30.0) sec BUN (9-20) mg/dL Creatinine (0.66-1.25) mg/dL Glucose (74-99) mg/dL POC Glucose (mg/dL) (75-99) mg/dL Hemoglobin A1c (4.2-6.1) % Assessment and Plan Plan: #1 difficulty breathing secondary to acute on chronic CHF with diastolic and systolic dysfunction. Ejection fraction 40-45% #2 elevated troponin level possible non-ST elevated CA #3 history of coronary artery disease and also history of CABG #4 history of CVA with minimal drooling. #5 hypertension #6 diabetes mellitus type 2 with HbA1c 7.2. Hna-dbpymyq-reezhwgyu #7 hyperlipidemia #8 GERD #9 history of CA Plan: Patient was inued on IV diuresis with IV Lasix and changed to by mouth Lasix. and continue to monitor renal function. We will continue with the aspirin and statins and atenolol. Cardiology has been consulted. Continue with insulin sliding scale and DVT prophylaxis. Further recommendations based on the clinical course. patient is not a candidate for cardiac catheterization. Prognosis is guarded. family is considering DO NOT RESUSCITATE/DO NOT INTUBATE. Time with Patient: Greater than 30
--- NOTE | 2016-11-30 14:01 | CDI ---
In responding to this query, please exercise your independent professional judgment. The [facility] Coding Staff and Clinical Documentation Specialists appreciate your assistance in clarifying documentation, maintaining compliance with coding guidelines, accurately documenting patients condition and capturing severity of illness. The fact that a question is asked does not imply that any particular answer is desired or expected. Communication forms are a method of clarifying documentation and are not made part of the Legal Health Record. Thank you in advance for your clarification. Last Revision, May 2015 Jarvis [place] [address] [place] [address] Documentation Clarification Form Mortality Review Date: 11/30/2016 1:42:00 PM From: Jennifer Simpson RN, CCDS Admit Date: 11/25/2016 10:58:00 AM Patient Name: Bari Narayanan Visit Number: [id number] Dr. Celia Villagomez The patient presented with the following respiratory symptoms: Dyspnea, SOB History/Risk Factors: Recent [place] 2 day [employer], CHF, HX of CVA w residual drooling, CKD stage 3 Tobacco use: NONE Home oxygen: There is no documentation that pt had home O2 Clinical Indicators: Vital signs/Pulse oximetry: On admission RR 25 w SPo2 88% on 3L Nasal Cannula, increased to 4L, increased to 100% NRB, then decreased to venti mask, Placed on BIPAP then placed back on 15L high flow nasal cannula after being made comfort measures 11/26 Attending Lung/Breathing assessment:" Trachea is central. Symmetrical expansion. Bilateral rhonchi positive. Right basilar crackles positive." Treatment: Breathing TX: none ordered Continuous Pulse ox BiPap Pt was placed on BiPAP 25/10 100% FIO2 for short period of time O2: 4L nasal Cannula Increasing to 100% NRB and 15L high Flow nasal cannula In your professional opinion, can you please clarify if these findings signify one of the following conditions? Acuity: o Acute o Chronic o Acute on Chronic Respiratory Status: o Respiratory failure o Respiratory failure with hypercapnia o Respiratory failure with hypoxia o Acute Respiratory Distress o Other Diagnosis, please specify o Unable to determine Please document in your progress notes and discharge summary in order to capture severity of illness and risk of mortality. Include clinical findings that support your diagnosis. FYI: Press F11 to launch patient chart. Place X here if this finding has no clinical significance, is not applicable or if you are not able to provide any additional documentation. MTDD
--- NOTE | 2016-11-30 14:12 | CDI ---
In responding to this query, please exercise your independent professional judgment. The [facility] Coding Staff and Clinical Documentation Specialists appreciate your assistance in clarifying documentation, maintaining compliance with coding guidelines, accurately documenting patients condition and capturing severity of illness. The fact that a question is asked does not imply that any particular answer is desired or expected. Communication forms are a method of clarifying documentation and are not made part of the Legal Health Record. Thank you in advance for your clarification. Last Revision, May 2015 Jarvis [place] [address] [place] [address] Documentation Clarification Form Mortality Review Date: 11/30/2016 2:02:00 PM From: Jennifer Simpson RN, CCDS Admit Date: 11/25/2016 10:58:00 AM Patient Name: Bari Narayanan Visit Number: [id number] Dr. Villagomez Altered mental status was documented in the Progress Notes. Patient history/risk factors: [place] 2 days [employer], CKD stage 3, HTN, DM2, Clinical Indicators: 11/26 Attending Progress Note: "Patient is lying in the bed comfortably, no acute distress, awake alert confused and lethargic." 11/26 Nurses Note: "11/26/16 23:20 - Nurse Note by Oscar Zamora Pt was found with changes to mental status and degree of response. An A-team and code stroke was initiated. Per the family they did not want to do any measures, code stroke was cancelled per the family request. MD notified of the family wishes, code status changed to a no code." Labs: Increasing BUN and Creatinine, uncontrolled Glucose, elevated CK and Troponin, [id number] CXR: CHF with moderate pulmonary edema and small bilateral pleural effusion. Treatment: Increasing O2 flow IV Lasix Comfort measures In your professional opinion, please clarify the etiology of the altered mental status, if known. Encephalopathy (specify Type and Underlying Medical Illness- Metabolic, Toxic , Hepatic) Dementia (if know, specify Type and if with/without Behavioral Disturbance) Other condition (please specify) Unable to determine Please document in your discharge summary in order to capture severity of illness and risk of mortality. Include clinical findings that support your diagnosis. FYI: Press F11 to launch patient chart. Place X here if this finding has no clinical significance, is not applicable or if you are not able to provide any additional documentation. MTDD
--- NOTE | 2017-01-09 22:41 | P.DS ---
Providers Date of admission: 11/25/16 10:58 Expected date of discharge: 11/27/16 Attending physician: Rosanne Guzman Consults: 11/25/16 11:16 Consult Physician Stat Consulting Provider: [facility] Consult Reason/Comments: Pulmonary edema, elevated troponin Do you want consulting provider notified?: Yes Primary care physician: [facility] Course: Discharge diagnosis #1 acute hypoxic respiratory failure secondary to CHF exacerbation. On admission #1 acute metabolic encephalopathy. #1 difficulty breathing secondary to acute on chronic CHF with diastolic and systolic dysfunction. Ejection fraction 40-45% #2 elevated troponin level possible non-ST elevated [place] #3 history of coronary artery disease and also history of CABG #4 history of CVA with minimal drooling. #5 hypertension #6 diabetes mellitus type 2 with HbA1c 7.2. [id number]-ssnolinwm #7 hyperlipidemia #8 GERD #9 history of TN Hospital course This is an 86-year-old male with a a past history significant for diabetes-2, hypertension and congestive heart failure presented to ER with worsening short of breath.. Patient was just discharged from the hospital on 11/21/2016 after treating for CHF exacerbation and non-ST elevated TN.. Patient states last evening he started becoming short of breath and the shortness of breath continued to get worse throughout the night. Patient states last night he did drink some Versed the pain did seem to go away. Patient states he lay down because of the pain and shortness of breath when he woke up this morning he continued to be short of breath so decided come to the emergency department. Patient denies any recent fever chills or cough. Patient denies any abdominal pain patient denies any nausea or vomiting. Patient denies any lightheadedness dizziness or near syncopal episode. Patient denies any numbness or weakness. Patient was found to have elevated BNP at 23K. Elevated troponin level 0.897 Chest x-ray showed mild right lower lobe infiltrate and posterior pleural effusion. 11/26/2016 Patient's respiratory status slightly improved today. Lasix has been changed to pills. Patient is a 4 history in. Denied any short of breath or chest pain. No fever no chills. No nausea or vomiting abdominal pain. Family is considering DO NOT RESUSCITATE/DO NOT INTUBATE. 11/27/2016 Patient became more confused last night and "stroke was initiated. Family does not want any further measures and requested to change the CODE STATUS to no code. Comfort measures initiated with the family's agreement. Patient on 11/27/2016 at 09:08. Patient Condition at Discharge: Undetermined Plan - Discharge Summary New Discharge Prescriptions: No Action Nitroglycerin Sl Tabs [Nitrostat] 0.4 mg SUBLINGUAL Q5M PRN PRN Reason: Chest Pain Furosemide [Lasix] 40 mg PO BID amLODIPine [Norvasc] 10 mg PO HS Simvastatin [Zocor] 40 mg PO HS Glimepiride [Amaryl] 2 mg PO -[facility] Isosorbide Mononitrate [Isosorbide Mononitrate ER] 30 mg PO DAILY Atenolol [Tenormin] 12.5 mg PO DAILY tab hydrALAZINE HCL [Apresoline] 75 mg PO TID #120 tab Aspirin 325 mg PO DAILY Discharge Medication List Furosemide [Lasix] 40 mg PO BID 11/21/16 [History] Glimepiride [Amaryl] 2 mg PO AC-BRKFST 11/21/16 [History] Isosorbide Mononitrate [Isosorbide Mononitrate ER] 30 mg PO DAILY 11/21/16 [ History] Nitroglycerin Sl Tabs [Nitrostat] 0.4 mg SUBLINGUAL Q5M PRN 11/21/16 [History] Simvastatin [Zocor] 40 mg PO HS 11/21/16 [History] amLODIPine [Norvasc] 10 mg PO HS 11/21/16 [History] Atenolol [Tenormin] 12.5 mg PO DAILY tab 11/23/16 [Rx] hydrALAZINE HCL [Apresoline] 75 mg PO TID #120 tab 11/23/16 [Rx] Aspirin 325 mg PO DAILY 11/25/16 [History] Follow up Appointment(s)/Referral(s): Jaspal Pal MD [Primary Care Provider] - 1-2 days Discharge Disposition: - Preliminary Cause of Preliminary Cause of : Acute hypoxic respiratory failure secondary to CHF exacerbation and NSTEMI
== END 2016-11-27 13:53 | disposition expired ==
LOC: EC 09:04 → 6SEL 10:58
PROVIDERS: ADMIT Internal Medicine; ATTEND Internal Medicine
DX: I11.0 Hypertensive heart disease with heart failure (principal); I21.4 Non-ST elevation (NSTEMI) myocardial infarction; G93.41 Metabolic encephalopathy; J96.01 Acute respiratory failure with hypoxia; I27.2 Other secondary pulmonary hypertension; E11.9 Type 2 diabetes mellitus without complications; I50.43 Acute on chronic combined systolic (congestive) and diastolic (congestive) heart failure; I25.10 Atherosclerotic heart disease of native coronary artery without angina pectoris; K21.9 Gastro-esophageal reflux disease without esophagitis; E78.5 Hyperlipidemia, unspecified; Z51.5 Encounter for palliative care; I25.2 Old myocardial infarction; Z86.73 Personal history of transient ischemic attack (TIA), and cerebral infarction without residual deficits; Z95.1 Presence of aortocoronary bypass graft; Z79.899 Other long term (current) drug therapy; Z79.82 Long term (current) use of aspirin; Z98.61 Coronary angioplasty status; Z83.3 Family history of diabetes mellitus; Z79.84 Long term (current) use of oral hypoglycemic drugs; Z82.3 Family history of stroke; Z98.41 Cataract extraction status, right eye; Z98.42 Cataract extraction status, left eye
CPT/HCPCS: 36415; 71010; 71020; 80048; 80053; 82550; 82553; 83036; 83735; 83880; 84484; 85025; 85610; 85730; 93005; 94660; 94760; 96374; 96375; 99291